=== PATIENT | female | born 1990 | race Hispanic/Latino ===

== ENCOUNTER 2016-10-30 19:39 | Inpatient (IN) | payer MEDICARE, OTHER ==
[~2016-10-30] VITALS: Ht 157.5 cm; Wt 57.0 kg
[~2016-10-30 19:39] MED LIST: AMLO10TA3 PO; CARV6.252 PO; DOXY100T2 PO; ERGO500050 PO; ETHA100T13 PO; HYDR200T5 PO; ISON300T4 PO; ISOS120T6 PO; LISI-571 PO; MYA400 PO; ONDA4TAB6 PO; OXYC-407 PO; POLY1POW MC; PRD1T PO; PYR50 PO; PYRA500T11 PO; RIFA300C4 PO; TRAM50TA2 PO
[2016-10-30 19:46] VITALS: BP 147/84; PULSE 96; RESP 18; O2SAT 96
--- NOTE | 2016-10-30 20:00 | ED.REPORT ---
HPI-Abd Pain F Under 40 Date of Service Oct 30, 2016 ED Provider: Benedicto Jiménez MD A 26 year old female with a history of peritoneal tuberculous infection, systemic lupus erythematosus, hypertension, CHF, and ESRD on dialysis presents to the ED with intermittent diffuse abdominal pain onset seven months ago, worsening last night. Associated symptoms include nausea and fever (38.2 in ED) . The patient denies constipation, diarrhea, vomiting, or urinary symptoms. She was seen in the ED at onset of her abdominal pain where she was diagnosed with ovarian cysts and discharged. However, her pain returned and upon further exam an abdominal mass was found. A biopsy of the mass indicated a possible TB infection and the patient has been on TB medication for six months. Today she had a routine abdominal CT (see results in I&D section) indicating the mass is enlarged from prior and was sent to the ED for further evaluation by her infectious disease physician. Nursing Notes Stated Complaint: POSS TB/ FEVER, SEVERE ABDOMINAL PAIN Chief Complaint: Female Abdominal Pain Nursing Notes Reviewed: Yes Allergies: Coded Allergies: No Known Allergies (Verified , 10/30/16) Scheduled Amlodipine (Amlodipine) 10 Mg Tablet 10 MG PO BID Carvedilol (Carvedilol) 6.25 Mg Tablet 6.25 MG PO BID Doxycycline Hyclate (Doxycycline Hyclate) 100 Mg Tablet 100 MG PO BID Ergocalciferol (Vitamin D2) (Drisdol) 50,000 Unit Capsule 50,000 UNIT PO Q7D Ethambutol (Ethambutol) 400 Mg Tablet 800 MG PO Mo,We,Fr After Dialysis (total of 900mg) Ethambutol (Ethambutol) 100 Mg Tablet 100 MG PO Mo,We,Fr After Dialysis (total of 900mg) Hydroxychloroquine Sulfate (Hydroxychloroquine Sulfate) 200 Mg Tablet 1 TAB PO HS Isoniazid (Isoniazid) 300 Mg Tablet 300 MG PO Mo,We,Fr Take After Dialysis Isosorbide MN ER (Isosorbide MN ER) 120 Mg Tab.er.24h 120 MG PO DAILY Lisinopril (Lisinopril) 5 Mg Tablet 5 MG PO DAILY PredniSONE (PredniSONE) 1 Mg Tab 4 MG PO DAILY Pyrazinamide (Pyrazinamide) 500 Mg Tablet 1,000 MG PO Mo,We,Fr Take After Dialysis Pyridoxine (Vitamin B-6) 50 Mg Tablet 200 MG PO Every Other Day Rifampin (Rifampin) 300 Mg Capsule 600 MG PO DAILY Scheduled PRN Ondansetron (Zofran) 4 Mg Tablet 4 MG PO Q6H PRN PRN For Nausea Oxycodone HCl/Acetaminophen 5-325 (Endocet 5-325) 1 Each Tablet 1-2 TABLET PO Q4H PRN PRN For Pain Polyethylene Glycol (Polyox Wsr-301) 1 Gm Powder 1 APPLIC MC DAILY PRN PRN For Constipation Tramadol (Tramadol) 50 Mg Tablet 50 MG PO BID PRN PRN For Pain General Time Seen by MD: 19:57 Chief Complaint Abdominal pain Hx Obtained From: Patient Arrived By: Walk-in Sudden in Onset?: No Onset Occurred: More than a week ago... (7 months, worsening last night) Symptom Duration: Intermittent Location: : Diffuse Quality: Painful Severity: Current: Moderate Severity: Maximum: Moderate Associated with: Reports: Fever, Nausea, Denies: Constipation, Diarrhea, Vomiting Pertinent Negative: Relieved by nothing Context Related History: Reports: Abdominal surgery Recent Healthcare: Recent doctor visit Similar Sx Previous: Yes Past Medical History Past Medical History Notes: PCP: Dr. Rivera Past Medical History Peritoneal tuberculous infection Abdominal mass Systemic lupus erythematosus Systemic lupus erythematosus glomerulonephritis syndrome ESRD on dialysis Hx of pneumonia Anxiety Congestive cardiomyopathy Cataracts Ovarian cysts Reports: Congestive heart failure, Hypertension Reports: Depression Past Surgical History Peritoneal Catheter R Fistula Abdominal mass biopsy Smoking History Never Smoker Social History Alcohol Use: "Social" Drug Use: Denies drug use Other Social History: Local resident Ambulatory Status Independent Review of Systems Review of Systems Note: - Urinary symptoms Constitutional: Reports: Fever (38.2 in ED) GI: Reports: Abdominal pain, Nausea, Denies: Constipation, Diarrhea, Vomiting Complete sys rev & neg: except as marked. Physical Exam Initial Vital Signs Vital Signs (First) Date Time Temp Pulse Resp B/P Pulse Ox O2 Delivery O2 Flow Rate FiO2 10/30/16 19:46 38.2 96 18 147/84 96 Room Air Initial VS: Reviewed Head / Eyes: Atraumatic, Normocephalic ENT: Conjunctiva normal, No scleral icterus Neck: Supple, Full range of motion Extremities: Vascular intact, Neuro intact, No swelling Skin: Warm, Dry, No cyanosis Neurologic: Alert, Oriented, Nonfocal Psychiatric: Mood/affect normal, Behavior normal, Normal thought content General/Constitutional: Awake, Alert Respiratory / Chest: Breath sounds NL, Breath sounds = bilat, No respiratory distress Cardiovascular: Regular rhythm, Heart sounds NL Heart Rate / Rhythm: Positive: Tachycardia Abdomen: Soft Tenderness/Guarding/Rebound: Positive: Tender periumbilical (L > R) Interpretation & Diagnostics 10/30/2016 Prior to Arrival in ED: CT ABDOMEN AND PELVIS WITH IV AND ORAL CONTRAST: IMPRESSION: 1. Interval increased size of central mesenteric lobulated mass, consistent with pathologically enlarged lymph node presumably from neoplasm. 2. Interval development of dominant 4.7 cm hemorrhagic left ovarian cyst, presumably functional given the patient's age. If no left adnexal symptoms are present, no further imaging followup would be needed for such lesions less than 5 cm. Previously noted dominant hemorrhagic right ovarian cyst has resolved. 3. Persistent anterior left hepatic lobe transient hepatic attenuation difference (RANCHO), secondary to altered perfusion with supplying vessels originating from the superior epigastric artery within the abdominal and chest wall. Finding is of uncertain underlying etiology. 4. Several dependent calcified gallstones again noted. 5. Symmetrically atrophic bilateral kidneys, consistent with known end-stage renal disease, For scheduled dialysis tomorrow. Dictated by: Héctor Bey M.D. on 10/30/2016 at 13:02 Lab Results Interpretation Result Diagram: 10/30/16203810/30/162038 Test 10/30/16 20:39 10/30/16 22:00 White Blood Count 8.0th/mm3 (3.8-10.1) Red Blood Count 3.60mil/mm3 (3.90-5.20) Hemoglobin 11.2g/dL (12.0-15.6) Hematocrit 33.2% (35.0-46.0) Mean Corpuscular Volume 92.2fL (81-100) Mean Corpuscular Hemoglobin 31.1pg (27.0-35.0) Mean Corpuscular Hemoglobin Concent 33.7% (32.0-37.0) Red Cell Distribution Width 13.6% (12.3-15.4) Platelet Count 236bil/L (150-400) Neutrophils (%) (Auto) 74.1% (40-74) Lymphocytes (%) (Auto) 12.9% (14-46) Monocytes (%) (Auto) 11.5% (4-12) Eosinophils (%) (Auto) 1.1% (0-5) Basophils (%) (Auto) 0.1% (0-3) Sodium Level 132mEq/L (134-144) Potassium Level 4.0mEq/L (3.5-5.2) Chloride Level 94mEq/L (97-108) Carbon Dioxide Level 19mmol/L (18-29) Blood Urea Nitrogen 43mg/dL (6-20) Creatinine 6.27mg/dL (0.57-1.00) Estimat Glomerular Filtration Rate 11mL/min (>59) Glucose Level 93mg/dL (60-99) Lactic Acid Level 1.4mmol/L (0.4-2.0) Calcium Level 8.8mg/dL (8.5-10.1) Total Bilirubin 0.9mg/dL (0.0-1.2) Aspartate Amino Transf (AST/SGOT) 24U/L (0-50) Alanine Aminotransferase (ALT/SGPT) 20U/L (0-32) Alkaline Phosphatase 108U/L (25-150) C-Reactive Protein 3.1mg/dL (0.0-0.5) Total Protein 7.7g/dL (6.4-8.4) Albumin 3.2g/dL (3.4-5.0) X-Ray Chest Interpretation Chest Xray Interpretation: IMPRESSION: No acute cardiopulmonary disease. Dictated by: Héctor Bey M.D. on 10/30/2016 at 20:55 View: Portable, 1 view Interpretation / Wet Read by: Interpret - Radiologist Re-Eval/Medical Decision Source of Hx: Old records Re-Evaluation/Progress : Time of Eval: 22:22 Patient Status: Condition improved Re-Evaluation/Progress Note: Discussed with patient x-ray and lab results, diagnosis, and plan for admit. Patient agrees with plan for care and all questions were addressed. Consultation #1: Referral / Consult Name: Jl Taylor MD Call Returned at: 22:05 Mechanical Maintenance Engineer: Will see patient (Will consult), Agrees with eval, Agrees with plan Note: Infectious Disease: Recommends admit Consultation #2: Referral / Consult Name: Jl Moser DO Consulted With: Nephrology Call Returned at: 22:23 Mechanical Maintenance Engineer: Will see patient, Agrees with eval, Agrees with plan Consultation #3: Referral / Consult Name: Cassandra Porter DO Consulted With: Hospitalist Call Returned at: 22:26 Mechanical Maintenance Engineer: Agrees with eval, Agrees with plan, Accepts admit Counseled Regarding: Diagnosis, Lab results, Need for admission Discharge & Departure Primary Impression: Abdominal pain Additional Impressions: Chronic renal failure Abdominal mass Disposition: ADMITTED TO HOSPITAL Discharge Condition All VS Reviewed: Yes Condition: Stable Referrals: Isidro Rivera MD (PCP) Jl Taylor MD Attestation Portions of this note were transcribed by Leela Raya. I, Dr. Jiménez, personally performed the history, physical exam, and medical decision-making; I reviewed and confirmed the accuracy of the information in the transcribed note. Signed by: Nicholas Donovan, 10/30/2016, 22:30 copies to: Isidro Rivera MD; Jl Taylor MD, Kirk H MD Oct 30, 2016 20:00 LEELA ARYA Oct 30, 2016 20:13
[2016-10-30] MEDS ORDERED: 0.9% Sodium Chloride 1,000 ML IV ONE (20:09)
[2016-10-30] MEDS ORDERED: Ondansetron 2 mg/mL 2 mL Inj IVPUSH PRN (20:10)
[2016-10-30] MEDS: HYDROmorphone 1 mg/mL Inj IVPUSH PRN ×2 (20:38→21:19)
[2016-10-30 20:56] LABS: BASOPHILS % (AUTO) 0.1 % (0-3); EOSINOPHILS % (AUTO) 1.1 % (0-5); MONOCYTES % (AUTO) 11.5 % (4-12); Mean Corpuscular Hemoglobin 31.1 pg (27.0-35.0); Mean Corpuscular Volume 92.2 fL (81-100); NEUTROPHILS % (AUTO) 74.1 % (40-74); Platelet Count 236 bil/L (150-400)
--- NOTE | 2016-10-30 20:57 | DRSVH ---
PROCEDURE: X-RAY CHEST ONE VIEW, PORTABLE ([id number]) INDICATIONS: 26 year-old female with chest pain and fevers. TECHNIQUE: One view of the chest was acquired. COMPARISON: [facility], CR, XR CHEST 2VW, 07/10/2016, 22:49. [facility], CR , XR CHEST 2VW, 03/04/2016, 21:01. [facility], CR, XR CHEST 2VW, 02/09/2016, 10:22. FINDINGS: Surgical changes and devices: None. Lungs and pleura: No pleural effusions or pneumothorax. Lungs are clear. Mediastinum: Mediastinal contours appear normal. Heart size is normal. Bones and chest wall: No suspicious bony lesions. Overlying soft tissues appear unremarkable. IMPRESSION: No acute cardiopulmonary disease. Dictated by: Héctor Bey M.D. on 10/30/2016 at 20:55 Approved by: Héctor Bey M.D. on 10/30/2016 at 20:56
[2016-10-30 21:52] VITALS: BP 119/63; PULSE 104; RESP 16; O2SAT 96
[2016-10-30] MEDS ORDERED: HYDROmorphone 1 mg/mL Inj IVPUSH ONE (22:15)
[2016-10-30] MEDS ORDERED: Polyethylene Glycol (PEG) 17 Gm Powder PO PRN (22:30)
[2016-10-31 00:15] VITALS: BP 116/73; PULSE 72; RESP 18; O2SAT 98
--- NOTE | 2016-10-31 01:11 | NUR ---
ADMIT; 26 yr old female to room 1010 via gurney from e.r. with c/o abd pain, nausea,chills, fever at 0015. Dialysis pt. Fistula in right arm. Pt states no pain at this time. Received dilaudid and toradol in e.r. E.r. rn states pt became very itchy and hands swelled after toradol given- received iv benadryl with resolved problem.
[2016-10-31 02:32] VITALS: BP 136/86; PULSE 86; RESP 18; O2SAT 99
--- NOTE | 2016-10-31 02:54 | PCM.HPMED ---
Subjective Date of Service Oct 30, 2016 Primary Provider: Admitting Physician: Cassandra Porter DO Primary Care Physician: Isidro Rivera MD Attending Physician: Cassandra Porter DO Chief Complaint: Fever, abdominal pain History of Present Illness: Patient is a 26-year-old female with hypertension, ESRD secondary to lupus nephritis, tubercular granuloma of the abdominal peritoneum presenting with abdominal pain and fever. The patient reports onset of intermittent lower abdominal pain that has been ongoing since last year. She states the pain typically lasts 3-4 days and describes it similar to menstrual cramps. She reports the quality of the pain hasn't changed much but has been a little worse over the past couple of days. She takes Percocet for the pain. She reports fever this morning with some myalgias and in the ED there was a recorded temperature of 38.2. The patient underwent a scheduled CT scan of her abdomen and pelvis today, which showed an interval increase in the size of the central mesenteric lobulated mass. Patient says she was advised by Dr. Taylor of Infectious Disease to go to the ED for further evaluation given the CT findings in addition to her symptoms. The patient reports associated nausea, myalgia and constipation. She otherwise denies emesis, recent sick contacts, cough, rhinorrhea, shortness of breath, chest pain, dysuria. Patient reports menstrual periods every 3-4 months and believes her last menstrual period was in 06/2016. In the ED, vitals: temp 37.5, HR 104, RR 16 satting 96% on room air, BP 119/63. Notable labs include BUN 43, creatinine 6.27. Regular dialysis schedule is Monday, Monday and Monday. Review of Systems: A comprehensive review of systems was conducted with the patient and found to be negative except as above in the History of Present Illness. Allergies Coded Allergies: ketorolac (Verified Allergy, Intermediate, 10/31/16) ITCHING, HANDS SWELLED Home Medications Carvedilol 6.25mg BID Prednisone 5mg daily Isosorbide mononitrate 120mg daily Amlodipine 10mg BID Calcium acetate 2g TID with meals Ethambutol 800mg after HD on , W, F Pyrazinamide 1500mg after HD on , W, Isoniazid 300mg daily Rifabutin 300mg daily Pyridoxine 200mg QOD . PMH -ESRD secondary to lupus nephritis -Tubercular granuloma of abdominal peritoneum -Hypertension -Depression and anxiety . Surgical History -AV fistula -PD catheter placement . Social History Hx Alcohol Use: Yes (Occasional) Hx Substance Use: No Hx Tobacco Use: No Smoking Status: Never Smoker Living Arrangement: with Family Exam Vital Signs Vital Sign - Last Date Time Temp Pulse Resp B/P Pulse Ox O2 Delivery O2 Flow Rate FiO2 10/30/16 21:52 37.5 104 16 119/63 96 Room Air Exam General: No acute, well-developed, well-nourished, appropriately interactive HEENT: Normocephalic, atraumatic. External ears without defect. Pupils equal, round, and reactive to light. Injected conjunctivae bilaterally. Oropharynx free of erythema and cobble stoning with moist mucosa. Neck: Supple. No lymphadenopathy or thyromegaly. Cardiovascular: Regular rate and rhythm with no murmurs, rubs, or gallops appreciated Pulmonary: Clear to auscultation bilaterally with no crackles, wheezes, or rhonchi. Normal respiratory effort with no use of accessory muscles. Abdomen: Bowel tones present. Soft. Tenderness to palpation RLQ and lower abdomen. Extremities: No clubbing, cyanosis, edema, or lymphadenopathy appreciated. Skin: Normal temperature, turgor, and texture; no rash, ulcers, or subcutaneous nodules appreciated. Neurological: Cranial nerves grossly intact. Psychiatric: Normal mood and affect. Alert and oriented to person, place, and time. Lab and Diagnostics Result Diagram: 10/30/16203810/30/162038 X-Rays, CTs and MRIs Date of Service: 10/30/16 1121 PROCEDURE: CT ABDOMEN AND PELVIS WITH CONTRAST ([id number]) INDICATIONS: 26 year-old female with mesenteric mass. TECHNIQUE: Patient is scheduled for dialysis tomorrow. After the administration of oral and intravenous contrast, 5 mm thick sections acquired from the diaphragms to the symphysis. 5 mm thick coronal and sagittal reformats were performed. For radiation dose reduction, the following was used: automated exposure control, adjustment of mA and/or kV according to patient size. COMPARISON: [facility], CT, CT ABD PELVIS WO CON, 07/14/2016, 12: 03. [facility], CT, CT ABD PELVIS W CON, 07/10/2016, 9:02. [facility], CT, CT KUB, 04/23/2016, 0:10. [facility], CT, CT ABD PELVIS W CON, 03/10/2016, 13:13. [facility], CT, CT KUB, 2015, 23:33. [facility], CT, ABD/PELVIS W/CON (PNL), 01/26/2005, 17: 48. FINDINGS: Image quality: Excellent. ABDOMEN: Lung bases: Lung bases are clear. Heart size is normal. Solid organs: Liver and spleen are normal in size, with persistent anterior left hepatic lobe segmental altered perfusion. Gallbladder contains several dependent calcified gallstones. Biliary system is non-dilated. Pancreas enhances normally. No adrenal nodules. Kidneys are symmetrically atrophic, without hydronephrosis. Peritoneum and bowel: Stomach, small bowel, and colon loops are normal in caliber and wall thickness. The appendix appears normal in caliber. No free fluid or air. Nodes and vessels: On axial image 48, lobulated mesenteric mass has increased in size from 5.2 x 3.3 cm, up to 6.5 x 3.7 cm. No retroperitoneal or mesenteric adenopathy. Aorta and inferior vena cava are normal in caliber. Miscellaneous: No ventral hernias. PELVIS: Genitourinary: Bladder wall thickness is normal. Uterus is normal in size. Previously noted dominant hemorrhagic right ovarian cyst has resolved. No dominant left ovarian cyst measures 4.7 x 4.1 cm, with dependent hyperdense fluid-fluid level. Miscellaneous: No inguinal hernias or adenopathy. Bones: No suspicious bony lesions. No vertebral body compression fractures. IMPRESSION: 1. Interval increased size of central mesenteric lobulated mass, consistent with pathologically enlarged lymph node presumably from neoplasm. 2. Interval development of dominant 4.7 cm hemorrhagic left ovarian cyst, presumably functional given the patient's age. If no left adnexal symptoms are present, no further imaging followup would be needed for such lesions less than 5 cm. Previously noted dominant hemorrhagic right ovarian cyst has resolved. 3. Persistent anterior left hepatic lobe transient hepatic attenuation difference (RANCHO), secondary to altered perfusion with supplying vessels originating from the superior epigastric artery within the abdominal and chest wall. Finding is of uncertain underlying etiology. 4. Several dependent calcified gallstones again noted. 5. Symmetrically atrophic bilateral kidneys, consistent with known end-stage renal disease, For scheduled dialysis tomorrow. Dictated by: Héctor Bey M.D. on 10/30/2016 at 13:02 Approved by: Héctor Bey M.D. 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 . 1. Mesenteric mass, chronic. Present on admission. Active -CT abdomen and pelvis reads interval increased size of central mesenteric lobulated mass, consistent with pathologically enlarged lymph node presumably from neoplasm. Increase from 5.2 x 3.3 cm to 6.5 x 3.7 cm -Mass was presumed TB but given the interval size increase while on appropriate therapy will necessitate further workup 2. Peritoneal tuberculosis, chronic. Present on admission. Active -Peritoneal mass presumed to be tuberculosis based on needle biopsy with positive AFB stain and positive Quantiferon gold; see #1 above -Infectious Disease to see patient -Continue with TB therapy (Rifabutin, Isoniazid, Ethambutol, and Pyrazinamide) until further recommendations by ID 3. Acute on chronic lower abdominal pain. Present on admission -Uncertain etiology; possibly secondary to above or sequelae of her lupus 4. Chronic systemic lupus erythematosus. Present on admission -Continue prednisone and hydroxychloroquine 5. End-stage renal disease on hemodialysis. Present on admission -Nephrology to see patient -Continue HD per schedule - Monday, Monday, Monday Patient Status: Patient is admitted under inpatient status with expected length of stay greater than 2 midnights due to severity of presenting symptoms and complexity of treatment plan. VTE Prophylaxis: Sub-Q Heparin (Unfractionated) Resuscitation Status: CPR: Attempt Resuscitation Attending Statement The patient was seen and examined together with house staff on 10/31/2016 and I agree with the history, exam and plan as outlined in the note above. Curt Melendez DO Oct 31, 2016 00:17 Cassandra Porter DO Oct 31, 2016 04:51
[2016-10-31 05:31] LABS: BASOPHILS % (AUTO) 0.2 % (0-3); EOSINOPHILS % (AUTO) 5.8 % (0-5); MONOCYTES % (AUTO) 12.6 % (4-12); NEUTROPHILS % (AUTO) 59.7 % (40-74); Platelet Count 218 bil/L (150-400)
--- NOTE | 2016-10-31 06:28 | NUR ---
PAIN/GI/VS; slept all shift. no c/o nausea. v.s.s.
[2016-10-31 07:03] VITALS: BP 112/68; PULSE 73; RESP 16; O2SAT 98
[2016-10-31] MEDS: Isosorbide Mononitrate 60 mg ER24 Tablet PO SCH (07:30)
[2016-10-31] MEDS ORDERED: PT Own Med->Oral Medication PO SCH (08:30)
[2016-10-31 10:42] VITALS: BP 147/96; PULSE 87
--- NOTE | 2016-10-31 11:45 | CONS ---
[address] [address] CONSULTATION REPORT PATIENT: BARBIE DE LOS SANTOS : 1990 MR#: [id number] ADMIT: 10/30/2016 JOB ID: [id number] DATE OF SERVICE: 10/31/2016 REASON FOR FOLLOW UP: Mesenteric mass with possible tuberculosis. I thank Dr. Lomeli for this timely consult. 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 Recall that this patient's problem started last summer when she developed unexplained abdominal pain. CT scanning showed a mesenteric mass of unknown etiology. There was very little in the way of symptoms except some abdominal pain, and occasional night sweats. An Interventional Radiology biopsy showed a couple of granulomas and a single AFB was seen in one the needle biopsy sections. 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 Interestingly, the patient had had a negative QuantiFERON Gold in December 2015 in preparation for kidney transplant in the summer. When we saw her in consultation, the QuantiFERON Gold had turned strongly positive. There was also a history that an aunt from [place] had brought up some fresh cheese in the December-January time frame and the patient had consumed significant quantities of queso fresco, a cheese sometimes associated with brucellosis or mycobacterium bovis. Our working hypothesis since March has been that this patient has either MTB or M. bovis of the mesentery. The patient was started on four drug TB therapy which was adjusted, of course, for her peritoneal dialysis, and she has been on TB treatment for 8+ months now. Unfortunately, during the early stages of her TB therapy, the patient was clearly only intermittently compliant. She refused directly observed therapy offered by the [facility], and initially reported that she had skipped many doses. Finally, in about June, after a series of problems which led to the removal of her peritoneal catheter and switched to hemodialysis, the patient became compliant and was continued on four drug therapy. She has now had at least three months of compliant four drug therapy with INH, rifabutin, PZA and ethambutol. The rifabutin is being used because she tolerates it better than rifampin she had been receiving previously. Prior to that, she had about four months of intermittent therapy. At the time the patient lost her peritoneal dialysis catheter in June, it was noted by the surgeon that there were numerous snowflake-like granules within the peritoneum. These were scraped and sent for multiplex PCR for TB for mycobacteria, which was negative. No path was sent from these. The diagnosis of TB was never proven in that the PCR of the original lymph node that showed the granulomas and the single AFB was negative. Subsequently, we have peritoneal fluid cultures as well as the PCR and AFB cultures from the peritoneal study that was seen in June which are negative for TB. Throughout her many months of TB therapy, the patient has continued to have episodic severe mid abdominal pain which lasts 3-4 days and occurs every three or four weeks. This often requires narcotics and this usually just resolves over a period of a few days. Yesterday, October 30, the patient awakened with new onset nausea as well as increasing and quite severe abdominal pain. This was associated with chills. She took her temperature and found it to be 86 degrees, and called me at home. I was a bit shocked by the temperature and recommended she proceed immediately to the emergency department. In the ED, she was actually found to be febrile with a temperature of 38.2, so the hypothermia was likely as a result of the defective home thermometer. In addition to the fevers and chills which started yesterday, as well as the nausea, the patient reports that she has felt very tired for a week or two, with just a general loss of energy. She also describes a few days of myalgias, arthralgias, and a right eye conjunctivitis, all of which started a few days prior to yesterday's nausea and abdominal pain. Prior to yesterday, she had no fever, no chills however, and she denies any vomiting, diarrhea, cough, shortness of breath or chest pain. PAST MEDICAL HISTORY: 1. Severe lupus requiring immunosuppressive agents. 2. 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 3. Hypertension. 4. Anxiety and depression. 5. 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 She occasionally drinks alcohol and has never smoked. She lives at home with her and 10-year-old. She used to travel for a week or so each year to [place], but has not been for several years. She was born and raised here in [facility]. Has never lived outside of the country on a consistent basis. FAMILY HISTORY: Negative for lupus and negative for TB. This negative history includes all of her extended family, including parents, siblings, uncles, aunts and cousins. REVIEW OF SYSTEMS: Was done in great detail. At this time, the patient has no headache. She has redness and irritation in her right eye which started a day or two ago. There is no loss of vision in that eye. She has not had rhinorrhea or sneezing. She has not had sore throat or trouble swallowing. Her neck is not stiff and has not been. She denies any significant cough, shortness of breath or chest pain. She has had very severe nausea which started yesterday morning, without vomiting and without diarrhea. She was able to eat on Monday, the , but not on Monday, the . She has had no skin rash. She notes her muscles and joints hurt diffusely and that started a few days ago. She has been able to work up to and including October 28, but she has felt very tired. She denies any new neurologic troubles such as difficulty walking or with balance. The remainder of the review of systems was negative. PHYSICAL EXAMINATION: Reveals a woman who is now afebrile 37 degrees. She was 38.2 in the ED yesterday. Pulse 73, respiratory rate 16, blood pressure 112/68. She is saturating well on room air. She is awake, alert, and appears a bit tired but otherwise appears like her normal self. Her head is free of any evidence of trauma. There is no sinus tenderness. She clearly has right eye conjunctivitis and appears to have a classic "pinkeye." Extraocular movement and visual acuity is normal. The oral cavity is without thrush or hairy leukoplakia. The neck is completely supple and without adenopathy or JVD. The lungs are quite clear. Cardiac tones crisp. Regular rate and rhythm. No murmurs, rubs, or gallops. The abdomen is soft and nontender this morning, without organomegaly. I cannot palpate the abdominal mass. There is no suprapubic tenderness. There is no [place] catheter. She has a fistula in her right forearm which has a good thrill and is functional. There is no warmth or tenderness over that fistula. The extremities are free of any evidence of synovitis. There is no skin rash. Muscle strength intact. Normal sensation, and normal mentation. LABORATORIES: Include white count 5700, hematocrit 33, platelet count 218. Creatinine 6.81. LFTs are normal last night in the ED. AST 24, ALT 28, alk phos 108. CRP is 3.1, was 6.1 when this all started in February 2016. I ordered a CA-125, that is still pending. Micro studies include a rapid influenza screen done yesterday which is negative, and blood cultures which were negative. IMAGING: Imaging includes a chest x-ray done in the ED yesterday which is negative, as all of her chest x-rays have been. I carefully reviewed the abdominal CT scan, done yesterday, with the radiologist in the radiology suite. It shows an increased size of the mesenteric mass compared to the CT scans done Summer 2015 and June 2016. Also noted was the development of a left hemorrhagic ovarian cyst. The previously noted very large right hemorrhagic ovarian cyst has resolved. Recall that previously we worried these could be tuberculosis, and that is still not completely out of the question. Dependent calcified gallstones were noted as well as atrophic kidneys. Last week, I had also ordered ultrasounds of the ovaries which suggested bilateral hemorrhagic cyst, and a pelvic ultrasound and abdominal ultrasound shows the complex collection seen in the periumbilical region. It was unclear what this was, and the nurse receptionist raised the possibility of abscess. The radiologist with whom I reviewed both the CT and ultrasound today stated that this mass that we have been following for so many months would be very amenable to needle biopsy. IMPRESSION: This is a bewildering case. The patient presented last February with severe abdominal pain and some night sweats. A needle biopsy of the mass showed a couple of granulomas and perhaps one acid-fast organism. This led to a repeat QuantiFERON Gold which interestingly had converted from completely negative in December to completely positive in March. The PCR of this lesion, however, was negative for TB, and peritoneal fluid washings which were done at that time since the patient was on peritoneal dialysis, were also negative for TB. Based on her presumptive diagnosis of mesenteric TB, we started the patient on four drug therapy, but she was initially noncompliant for many months despite aggressive efforts and counseling by myself, the [facility] TB officers, the food prep worker, and many others. Finally, in June, she developed worsening abdominal pain, and her peritoneal dialysis catheter had to be removed. About that time, the patient became much more diligent in terms of taking her TB drugs, and reports complete compliance since late June, about three and half months ago. Despite continued compliance with her four drug TB therapy, the patient has had episodic abdominal pain which is sometimes quite severe. She has not lost any weight, however, and in general, continues to be quite functional. More recently, over the last couple of weeks, she has become quite fatigued, however. She was readmitted yesterday for an exacerbation of abdominal pain and a probable false positive report of hypothermia. Yesterday morning, by complete coincidence, was the day that she had been scheduled for her outpatient CT scan of the abdomen with contrast. Her symptoms of abdominal pain started before the CT, interestingly, as did her nausea. That CT now shows what appears to be any increase in the size of this mesenteric mass despite three and half months of four drug TB therapy. This raises the possibility, I suppose, that this is a multi-drug resistant TB which is quite rare in the [facility]. It also raises the possibility that she is less compliant than she admits, though I am inclined to think that is not the case based on her refill history and my frequent conversations with her. A bigger concern here is that perhaps our initial diagnosis was completely wrong and this is actually a malignant process or some bizarre manifestation of her lupus. RECOMMENDATIONS: 1. For now, will continue with the four drug TB therapy. 2. I have discussed this case in person with Interventional Radiology, and they are prepared to undertake an additional needle biopsy. 3. Before the needle biopsy though, I think I will discuss this case with either Dr. Jeong or Dr. Nobles of General Surgery, both of whom know this patient. I wonder whether it would be better to simply attempt and resect this mesenteric mass both obviously for pain relief but also to finally provide a definitive diagnosis in this most perplexing case. 4. I will continue to follow this case closely with you. 5. I spent about 1 hour yesterday on the phone coordinating care from home for this patient and again about another hour today coordinating care.
[2016-10-31] MEDS ORDERED: Furosemide 10 mg/mL 2 mL Inj ONE (12:50)
[2016-10-31] MEDS ORDERED: HYDROmorphone 1 mg/mL Inj IVPUSH PRN (13:10)
--- NOTE | 2016-10-31 14:58 | NUR ---
Dialysis Note: 3 1/2 hr tx, Net UF 3000. Right fistula accessed without difficulty by tech. NS drip ran at 500 mL/hr in addition to heparin maint of 400/hr. C/o abdominal pain, 3 hr into tx; primary RN informed and pt given tylenol first with no relief and then given dilaudid. Pain improved. Site clamped x 10 min and secured with SS, gauze. Pt returned to floor stable. Please see DTR for complete record of VS.
[2016-10-31] MEDS: predniSONE 1 mg Tablet PO SCH (15:24)
[2016-10-31] MEDS: PYRAZINAMIDE 500 MG PO SCH (15:26)
[2016-10-31 15:28] VITALS: BP 119/77; PULSE 81; RESP 16; O2SAT 99
[2016-10-31] MEDS: HYDROmorphone 1 mg/mL Inj IVPUSH PRN ×2 (16:02→19:32)
--- NOTE | 2016-10-31 16:04 | NUR ---
PAIN C/o left shoulder pain 04/03, unrelieved by repositioning. Offered ice pack. Administered 1mg Dilaudid IVP States relief noted from administration. Denies nausea, or chills. remained afebrile throughout shift.
[2016-10-31] MEDS: Polyethylene Glycol (PEG) 17 Gm Powder PO SCH (16:41)
[2016-10-31] MEDS: Ondansetron 2 mg/mL 2 mL Inj IVPUSH PRN (16:41)
--- NOTE | 2016-10-31 20:04 | CONS ---
[address] [address] CONSULTATION REPORT PATIENT: BARBIE DE LOS SANTOS : 1990 MR#: [id number] ADMIT: 10/30/2016 JOB ID: [id number] DATE OF SERVICE: 10/31/2016 REQUESTING PHYSICIAN: Cassandra Porter D.O. REASON FOR CONSULTATION: Management of end-stage renal disease. CHIEF COMPLAINT: Abdominal pain and fever. PRESENT ILLNESS: This is a 26-year-old lady with significant past medical history of end-stage renal disease secondary to lupus nephritis currently on hemodialysis every Monday, Monday and Monday, SLE, hypertension, tuberculosis granuloma of abdominal peritoneum who presented to the emergency department with a complaint of acute abdominal pain and fever. The patient has been diagnosed with end-stage renal disease for several years. Initially, she was on peritoneal dialysis. Unfortunately, she developed hemorrhagic discharge and subsequently had an extensive workup showing a tuberculous granuloma without evidence of tuberculous peritonitis. The patient has been under the care of Dr. Taylor for eight months also. She has been on antituberculosis medications. Of note, she had poor compliance with the medications. However, over the past three months she has been adhering to the medications. The patient had a peritoneal catheter removed sometime in June 2016. The patient is now on hemodialysis every Monday, Monday, and Monday. The patient was admitted between July 10 and July 18, 2016 due to abdominal pain. At that time, CT of the abdomen showed bilateral adnexal masses which ruled out hemorrhagic cyst, tumor, tuberculomata. At that time, she was on IV ceftriaxone along with antituberculosis medications. The patient came in this time with a complaint of worsening abdominal pain. The pain is localized on the suprapubic area. It is intermittent. She also is feeling weak, fatigue, feverish. Patient contacted Dr. Taylor and was informed to come to the emergency department for further investigation. The initial temperature at the emergency department was 38.2. The CT of the abdomen and pelvis was performed. It showed interval increase in the size of central mesenteric lobulated mass, dominant hemorrhagic right ovarian cyst has resolved, nondominant left ovarian cyst measures 4.7 x 4.1 cm. During my visit today, the patient is currently on hemodialysis. She had not had a temperature since this morning. She has some nausea but no vomiting. She remains having suprapubic tenderness. Renal was consulted to continue dialysis while she is hospitalized. She is a patient of Dr. ANTONINO Rivera. Her dialysis unit ts at [facility]. PAST MEDICAL HISTORY: 1. End-stage renal disease secondary to SLE currently on hemodialysis every Monday, Monday, and Monday. 2. SLE. 3. Tuberculosis granuloma of the abdominal peritoneum. 4. History of hemorrhagic ovarian cyst. 5. Hypertension with hypertensive nephrosclerosis. PAST SURGICAL HISTORY: 1. Status post peritoneal dialysis catheter placement and removal. 2. Status post AV fistula creation. ALLERGIES: KETOROLAC causes itching and hand swelling. FAMILY HISTORY: Noncontributory. REVIEW OF SYSTEMS: A 14 point review of system was performed. MEDICATIONS: Reviewed per medical reconciliation. SOCIAL HISTORY: Denies current use of alcohol, tobacco, or illicit drugs. PHYSICAL EXAMINATION: Vitals: Temperature 37.0, pulse 73, respiratory 16, blood pressure 112/68, O2 sat 98% on room air. General appearance: Awake, alert, oriented x3. In no acute distress. Well developed, well nourished. HEENT: No pallor. No jaundice. No JVD. No lymphadenopathy. No thyroid enlargement. Moist mucous membranes. Atraumatic. PERRLA. Heart: Regular rhythm. Normal S1, S2. No murmurs, rubs, or gallops. Lungs: Clear to auscultation bilaterally. No crackles and no wheezes. No rhonchi. No accessory muscle use. Abdomen: Soft. Mild tenderness on the right lower quadrant and suprapubic area. No guarding. No rigidity. Extremities: No edema, cyanosis or clubbing of the fingers. Right AV fistula with good thrill and bruits. LABORATORY: WBC 5.7, hemoglobin 11.0. Sodium 134, potassium 4.2, chloride 96, bicarb 20, BUN 46, creatinine 6.81, calcium 8.2. Chest x-ray showed no acute cardiopulmonary disease. Abdominal CT showed increased size of central mesenteric lobulated mass, consistent with pathological enlarged lymph node presumably by neoplasm, interval development of dominant 4.7 cm hemorrhagic left ovarian cyst, several dependent calcified gallstones, atrophic bilateral kidneys. ASSESSMENT: 1. Acute on chronic abdominal pain. 2. CAT scan showed increased size of central mesenteric lobulated mass, measures 6.5 x 3.7 cm. The patient has been evaluated by Dr. Taylor, pending for possible Interventional Radiology to perform a percutaneous needle biopsy. 3. End-stage renal disease on hemodialysis every Monday, Monday, and Monday. 4. Tuberculous granuloma of abdominal peritoneum. 5. History of systemic lupus erythematosus. 6. Hypertension with hypertensive nephrosclerosis. PLANS: Per renal standpoint, we will resume dialysis to be performed every Monday, Monday, and Monday. We will continue her current blood pressure medications. We will monitor her potassium, calcium and phosphorus level. We will follow along with the primary team. Will follow ID recommendations. Will notify her primary tractor sweeper driver. Thank you for the consultation. We will monitor along with you. NARGIS
[2016-10-31 21:40] VITALS: BP 115/78; PULSE 93; RESP 16; O2SAT 99
--- NOTE | 2016-11-01 00:30 | CONS ---
[address] [address] CONSULTATION REPORT PATIENT: BARBIE DE LOS SANTOS : 1990 MR#: [id number] ADMIT: 10/30/2016 JOB ID: [id number] DATE OF SERVICE: 10/31/2016 REQUESTING PHYSICIAN: Jl Taylor MD. HISTORY OF PRESENT ILLNESS: The patient is a 26-year-old female who I know from the past. She has a very complex history of possible intra-abdominal tuberculosis or atypical mycobacterial infection. She has a history of lupus and lupus nephritis. She is on immunosuppressive agents. She had a peritoneal dialysis catheter that ultimately had to be removed last June. She is currently on hemodialysis. Unfortunately, she was being prepped and readied for a renal transplant before all the history of possible intra-abdominal tuberculosis developed. She has been on four medications for tuberculosis. Prior to that, she had been very inconsistent in taking her antibiotics. Last May I did a diagnostic laparoscopy. I removed multiple small little granules that were like the size of salt granules. They were sent for PCR for TB and they were negative. Prior to that, she had a needle biopsy that showed non-caseating granulomas and one possible AFB organism. She has been on four antituberculosis drugs for the last three months and has been compliant. They include INH, rifabutin, PZA and ethambutol. But, she has been having intermittent episodes of abdominal pain. She went to the emergency department during an episode of pain and had a CT scan which shows an enlarging mesenteric mass that had previously been biopsied. I was asked to see her for consideration of resection of the mass or if it should be biopsied. PAST MEDICAL HISTORY: Illnesses: 1. Lupus. 2. Immunosuppressive agents. 3. End-stage renal failure secondary to lupus nephritis. 4. Hypertension. 5. Anxiety, depression. 6. Mesenteric mass. SOCIAL HISTORY: She is . She has a 10-year-old daughter. 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 REVIEW OF SYSTEMS: Currently denies any abdominal pain and also states that she has never been able to feel an abdominal mass. PHYSICAL EXAMINATION: Her BMI is 22.5, temperature is 36.8, brachial blood pressure 119/77, pulse 81, respiratory rate 16, O2 sat on room air 99%. She is alert, no distress. HEENT: Nonjaundiced. Neck: No masses. Lungs: Clear. Cardiac exam: Regular rhythm. Abdomen: Soft, nontender. I cannot palpate the abdominal mass seen on CT scan. Extremities: Right forearm fistula. Skin: No abdominal wall rashes. Neurologic exam: Appropriate affect. No obvious cranial nerve deficits. Moves all extremities. Gait not tested. LABORATORY RESULTS: White blood cell count is normal. Yesterday, it was 8.0, today it is 5.7. Hematocrit 33 platelet count 218,000. INR 1.00. Creatinine 6.81. Electrolytes are normal. Glucose is normal. CT scan of abdomen and pelvis is personally reviewed by myself, but also discussed together with Dr. Taylor and also with Dr. Iris Gomez. IMPRESSION: Mesenteric mass. I think that it should first be biopsied percutaneously. I have arranged for this for tomorrow. Dr. Gomez thought the way to initially approach it would be through ultrasonic guidance as that would allow them to avoid mesenteric vessels. I think that this might actually be hard to remove completely because it does look like on her CT scan that the mesenteric vessels run right through it. The differential is quite broad, but includes inflammatory, infectious and neoplastic etiologies. I discussed this with the patient, and she understands and agrees. Again, Dr. Gomez is planning a core biopsy.
[2016-11-01] MEDS: HYDROmorphone 1 mg/mL Inj IVPUSH PRN ×6 (02:30→22:56)
--- NOTE | 2016-11-01 04:00 | NUR ---
pain pt has continued to have L shoulder pain. she has rated it a 5/10 this shift. she has received IV dilaudid twice for her pain. she has been sleeping appearing to be comfortable in between doses. pt has been NPO since midnight. care continues.
[2016-11-01 05:39] LABS: BASOPHILS % (AUTO) 0 % (0-3); EOSINOPHILS % (AUTO) 6.6 % (0-5); MONOCYTES % (AUTO) 14.3 % (4-12); Mean Corpuscular Hemoglobin 30.9 pg (27.0-35.0); Mean Corpuscular Volume 93.9 fL (81-100); NEUTROPHILS % (AUTO) 65.7 % (40-74); Platelet Count 219 bil/L (150-400)
[2016-11-01 06:07] LABS: Magnesium 2.1 mg/dL (1.6-2.6); Phosphorus 6.6 mg/dL (2.5-4.9)
[2016-11-01] MEDS: Ondansetron 2 mg/mL 2 mL Inj IVPUSH PRN ×3 (06:24→17:11)
[2016-11-01 06:56] VITALS: BP 107/65; PULSE 65; RESP 18; O2SAT 98
[2016-11-01] MEDS: Polyethylene Glycol (PEG) 17 Gm Powder PO SCH (08:30)
--- NOTE | 2016-11-01 08:44 | PROG NOTE ---
[address] [address] PROGRESS NOTE PATIENT: BARBIE DE LOS SANTOS : 1990 MR#: [id number] ADMIT: 10/30/2016 JOB ID: [id number] DATE: 11/01/2016 INFECTIOUS DISEASE FOLLOW UP NOTE: REASON FOR FOLLOW UP: Mesenteric mass. INTERVAL HISTORY: Overnight, the patient reports her abdominal pain has subsided. She has had no fevers, chills, shortness of breath, abdominal pain, nausea, vomiting or diarrhea. Note that her abdominal pain got better basically when she was given narcotics but has not recurred during the night. She did have some trouble sleeping though due to the unfamiliar circumstances of the hospital. PHYSICAL EXAMINATION: Reveals an afebrile woman in no acute distress. Temperature 36.7, pulse 65, respiratory rate 18, blood pressure 107/65. She is saturating well on room air. Examination of the mental status reveals it to be clear. Oral cavity benign. Lungs clear. Cardiac tones without murmur. Abdomen again soft and nontender. I cannot appreciate the mass even though I just looked at the imaging of it and it seems to be basically right in the middle of her abdomen and very shallow. The remainder of the exam is unremarkable. LABORATORIES: Include white count 6500, basically normal differential except a mild monocytosis and 6% eosinophils. Her creatinine is 4.45. Her LFTs are normal. Albumin 3.4. CRP 3.1. CA-125, that I had ordered is negative at 18. The respiratory viral PCR panel ordered yesterday has come back negative. Blood cultures from admission when she did have a low-grade fever, are negative and a flu study of rapid flu negative. Chest x-ray was normal. IMPRESSION: This continues to be a bewildering case which has stymied our best efforts to diagnose and treat over the last eight months. The nature of this enlarging mesenteric mass remains unclear. Our initial biopsies from last March showed what appeared to be granulomas with at least one AFB organisms. Despite eight months of treatment, during about half of which was marked by compliance with her four drug regimen (the period from late July until the current time) the mass has actually enlarged. This raises the possibility of multi-drug resistant TB which I find quite unlikely or perhaps a completely different diagnosis either related to her lupus or perhaps even a neoplasm. A mesenteric mass like this is not really typical for much of anything and we need additional tissue before we can decide what is going on. This case discussed extensively in person with interventional Radiology, general surgery and nephrology. RECOMMENDATIONS: 1. Continue four drug TB therapy for now. 2. After discussions with General Surgery and Interventional Radiology it seems like we will start here again with Interventional Radiology. 3. The biopsy should be sent for histopath, AFB, fungal and bacterial PCR studies at the [facility], routine and AFB cultures, and as noted, histopath. 4. I have communicated the request to the head of the micro lab as well as written the orders in the chart.
--- NOTE | 2016-11-01 12:09 | PCM.PNMED ---
Subjective Date of Service Nov 01, 2016 Subjective No overnight event Patient still required Dilaudid when necessary for pain Denied nausea or vomiting Awaiting sono-guided biopsy by IR today Exam Vital Signs Vital Sign - Last Date Time Temp Pulse Resp B/P Pulse Ox O2 Delivery O2 Flow Rate FiO2 11/01/16 06:56 36.7 65 18 107/65 98 Room Air Intake and Output 10/31/16 10/31/16 11/01/16 Cumulative From/Thru 14:59 22:59 06:59 10/30/16 19:46 - 11/01/16 06:56 Intake Total 420 ml 375 ml 1795 ml Output Total 0 ml 600 ml 800 ml Balance 420 ml -225 ml 995 ml Intake Oral 420 ml 375 ml 795 ml IV Total 1000 ml Output Urine Total 0 ml 600 ml 800 ml # Voids 2 2 # Bowel Movements 0 0 Exam thin -Polish young lady, laying down comfortably no JVD, MMM, no LAD RRR, nl s1, s2 no mrg CTAB, no w,c S,ND, diffuse tenderness periumbilical area, hypoactive BS+ warm, no edema, pulses 2/2 IVs and Medications Medications Reviewed: Medications were reviewed in detail Lab and Diagnostics Result Diagram: 11/01/16 0506 11/01/16 0506 X-Rays, CTs and MRIs Date of Service: 10/30/16 1121 PROCEDURE: CT ABDOMEN AND PELVIS WITH CONTRAST ([id number]) INDICATIONS: 26 year-old female with mesenteric mass. TECHNIQUE: Patient is scheduled for dialysis tomorrow. After the administration of oral and intravenous contrast, 5 mm thick sections acquired from the diaphragms to the symphysis. 5 mm thick coronal and sagittal reformats were performed. For radiation dose reduction, the following was used: automated exposure control, adjustment of mA and/or kV according to patient size. COMPARISON: [facility], CT, CT ABD PELVIS WO CON, 07/14/2016, 12: 03. [facility], CT, CT ABD PELVIS W CON, 07/10/2016, 9:02. [facility], CT, CT KUB, 04/23/2016, 0:10. [facility], CT, CT ABD PELVIS W CON, 03/10/2016, 13:13. [facility], CT, CT KUB, 2015, 23:33. [facility], CT, ABD/PELVIS W/CON (PNL), 01/26/2005, 17: 48. FINDINGS: Image quality: Excellent. ABDOMEN: Lung bases: Lung bases are clear. Heart size is normal. Solid organs: Liver and spleen are normal in size, with persistent anterior left hepatic lobe segmental altered perfusion. Gallbladder contains several dependent calcified gallstones. Biliary system is non-dilated. Pancreas enhances normally. No adrenal nodules. Kidneys are symmetrically atrophic, without hydronephrosis. Peritoneum and bowel: Stomach, small bowel, and colon loops are normal in caliber and wall thickness. The appendix appears normal in caliber. No free fluid or air. Nodes and vessels: On axial image 48, lobulated mesenteric mass has increased in size from 5.2 x 3.3 cm, up to 6.5 x 3.7 cm. No retroperitoneal or mesenteric adenopathy. Aorta and inferior vena cava are normal in caliber. Miscellaneous: No ventral hernias. PELVIS: Genitourinary: Bladder wall thickness is normal. Uterus is normal in size. Previously noted dominant hemorrhagic right ovarian cyst has resolved. No dominant left ovarian cyst measures 4.7 x 4.1 cm, with dependent hyperdense fluid-fluid level. Miscellaneous: No inguinal hernias or adenopathy. Bones: No suspicious bony lesions. No vertebral body compression fractures. IMPRESSION: 1. Interval increased size of central mesenteric lobulated mass, consistent with pathologically enlarged lymph node presumably from neoplasm. 2. Interval development of dominant 4.7 cm hemorrhagic left ovarian cyst, presumably functional given the patient's age. If no left adnexal symptoms are present, no further imaging followup would be needed for such lesions less than 5 cm. Previously noted dominant hemorrhagic right ovarian cyst has resolved. 3. Persistent anterior left hepatic lobe transient hepatic attenuation difference (RANCHO), secondary to altered perfusion with supplying vessels originating from the superior epigastric artery within the abdominal and chest wall. Finding is of uncertain underlying etiology. 4. Several dependent calcified gallstones again noted. 5. Symmetrically atrophic bilateral kidneys, consistent with known end-stage renal disease, For scheduled dialysis tomorrow. Dictated by: Héctor Bey M.D. on 10/30/2016 at 13:02 Approved by: Héctor Bey M.D. 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 . #acute chronic abdominal pain due to enlarging Mesenteric mass, POA, CT showed interval increased size of central mesenteric lobulated mass, consistent with pathologically enlarged lymph node presumably from neoplasm. Increase from 5.2 x 3.3 cm to 6.5 x 3.7 cm. 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 Present on admission -Continue prednisone and hydroxychloroquine #End-stage renal disease on hemodialysis. Present on admission -Nephrology to see patient -Continue HD per schedule - Monday, Monday, Monday #enlarging left hematologic ovarian cyst, 4.7cm, this finding seems not contributing to current presentation, ca-125 unremarkable, dispo: d/c home likely in 2-3more days, not until sx controlled, definite plan in place dvt ppx: SCD diet: resume renal diet after procedure Full Code VTE Prophylaxis: Sub-Q Heparin (Unfractionated) VTE Mechanical Devices: Intermittant Pneumatic CD Resuscitation Status: CPR: Attempt Resuscitation Time spent 35 minutes Sebastian Lomeli MD Nov 01, 2016 12:09
[2016-11-01 12:30] VITALS: BP 118/69; PULSE 76; RESP 16; O2SAT 98
[2016-11-01] MEDS ORDERED: HYDROmorphone 2 mg/mL Inj ONE (12:40)
--- NOTE | 2016-11-01 12:57 | NUR ---
Off unit/Medication delays Pt off unit to [facility] for US guided biopsy at 1000. Morning medications were not given prior to this. BID medications were withheld and "daily" medications will be given upon return to unit. MD aware. Procedure longer than normal d/t missed tests.
--- NOTE | 2016-11-01 13:46 | DRSVH ---
PROCEDURE: US GUIDED BIOPSY ABDOMEN/RETROPERITONEUM INDICATIONS: mesenteric mass, send to path but also culture for COMPARISON: None. FINDINGS: After informed consent obtained the mesenteric soft tissue mass involving the lower anteri or abdominal wall was examined sonographically site chosen for percutaneous biopsy. Skin was prepped and draped in the usual fashion 1% lidocaine infiltrated from the skin down to the m ass. A 20 gauge biopsy apparatus was then utilized in 4 core biopsies were obtained. The needle was removed a dressing was applied. Additional testing including micro-/culture and sensitivity as well as fungal stains have been ordere d and therefore 2 additional core biopsies were obtained. The patient was recovered within the special observation unit and no complications were encountered t hroughout the procedure. The attending physician was present, and personally performed the procedure. IMPRESSION: Successful sonographically directed percutaneous biopsy involving the superficial lower abdominal soft tissue mass. Dictated by: Shamir DWYER Interpreted: Tucker Lee MD on 11/01/2016 at 13:43 Transcribed by: DULCE on 11/01/2016 at 13:45 Approved by: Tucker Lee M.D. on 11/01/2016 at 22:12
--- NOTE | 2016-11-01 13:55 | NUR ---
Social Work Initial Assessment Attempted: SW attempted to meet with patient at bedside to discuss discharge plan. Patient currently off unit for guided biopsy. Patient is a 26 year old female admitted on 10/30/16 for abdominal pain. Patient payer as medicare and [facility]. Patient resides in [place] with [place], . Patient also current with HD on M/W/. SW to follow up upon patient return to unit. SW to follow. PLAN: Initial Assessment pending. Possible home with family, via POV, pending clinical course Minerva LONGO
--- NOTE | 2016-11-01 13:58 | NUR ---
Pt transferred to [facility] room 1010 via wheelchair. Report called to Aimee PERES, biopsy site CDI.
[2016-11-01] MEDS: predniSONE 1 mg Tablet PO SCH (14:37)
[2016-11-01] MEDS: Isosorbide Mononitrate 60 mg ER24 Tablet PO SCH (14:37)
[2016-11-01] MEDS ORDERED: oxyCODONE-Acetamin 5-325 mg Tablet PO PRN (16:30)
[2016-11-01 19:46] VITALS: BP 118/69; PULSE 79; RESP 17; O2SAT 99
[2016-11-01 21:17] VITALS: BP 114/65
--- NOTE | 2016-11-01 21:19 | NUR ---
BP Med refusal Pt refused BP HS meds BP 114/65 HR 76. "I usually run high, so I don't need them now." No s/sx of hypo/hypertension noted.
[2016-11-02] MEDS: HYDROmorphone 1 mg/mL Inj IVPUSH PRN (01:25)
--- NOTE | 2016-11-02 02:53 | NUR ---
Pain C/O Left shoulder pain 02/01. IV Dilaudid given with good effect per Pt. Denies Nausea and gi upset.
[2016-11-02 05:45] VITALS: BP 119/70; PULSE 74; RESP 17; O2SAT 100
[2016-11-02] MEDS: Isosorbide Mononitrate 60 mg ER24 Tablet PO SCH (07:30)
[2016-11-02 07:57] LABS: BASOPHILS % (AUTO) 0.2 % (0-3); EOSINOPHILS % (AUTO) 6.4 % (0-5); MONOCYTES % (AUTO) 16.4 % (4-12); Mean Corpuscular Hemoglobin 30.9 pg (27.0-35.0); Mean Corpuscular Volume 93.6 fL (81-100); NEUTROPHILS % (AUTO) 56.6 % (40-74); Platelet Count 240 bil/L (150-400)
[2016-11-02 08:05] LABS: Magnesium 2.6 mg/dL (1.6-2.6); Phosphorus 7.7 mg/dL (2.5-4.9)
[2016-11-02] MEDS: Polyethylene Glycol (PEG) 17 Gm Powder PO SCH (08:30)
[2016-11-02] MEDS: predniSONE 1 mg Tablet PO SCH (08:48)
[2016-11-02] MEDS: Ondansetron 2 mg/mL 2 mL Inj IVPUSH PRN (08:51)
--- NOTE | 2016-11-02 09:13 | PCM.DIMED ---
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 Follow-up plan Please follow up the result of the biopsy with or . will see you in the dialysis center next week. Follow-up Provider: Isidro Rivera MD Follow-up with PCP in: 2 weeks Provider: Jl Taylor MD Follow-up in: 1 week Sebastian Lomeli MD Nov 02, 2016 09:13
--- NOTE | 2016-11-02 09:17 | NUR ---
Social Work: Initial Assessment Data: Pt is a 26 y/o female admitted for abdominal pain. Pt's PCP is Dr Rivera, pt's insurance is Medicare [facility]. EMR reviewed. Readmit score is 4. TRAVEL ADMINISTRATOR met with pt at bedside, role explained. Pt states that she lives in [place] with her spouse and daughter who she cares for. She states they have no DPOA and declined information, she has no stairs in her home, no medical equipment, no HH or SNF history, no LTC or VA benefits. Pt states she plans to drive home herself as she drove herself to the hospital. Pt is a current HD pt on Monday, Monday, and Fridays. No d/c planning needs anticipated at this time. TRAVEL ADMINISTRATOR will continue to follow if needs arise. Assessment: Pt who is independent at baseline. Plan: Pt will d/c home via POV when medically stable. No d/c planning needs anticipated at this time. TRAVEL ADMINISTRATOR will continue to follow if needs arise. QING Rendon Addendum: 11/02/16 at 0920 by GEMMA GRMIALDO Amended: Links added.
[2016-11-02 09:42] VITALS: BP 137/88; PULSE 70
--- NOTE | 2016-11-02 10:13 | NUR ---
Inpatient dialysis Patient transported by bed to room 244-1. Report received from Pranay Bush RN. Patient denies nausea. fish and game warden at bedside. Addendum: 11/02/16 at 1352 by CHAPIN YOON RN Dialysis ended. Report given to Pranay Bush RN. Patient transported by bed to room 1010.
[2016-11-02] MEDS: PYRAZINAMIDE 500 MG PO SCH (10:18)
--- NOTE | 2016-11-02 11:34 | PCM.PNMED ---
Subjective Date of Service Nov 02, 2016 Subjective s/p US guided biopsy yesterday. c/o pain RUQ. She is seen during HD. Stable. Exam Vital Signs Vital Sign - Last Date Time Temp Pulse Resp B/P Pulse Ox O2 Delivery O2 Flow Rate FiO2 11/02/16 09:42 70 11/02/16 05:45 36.6 17 119/70 100 Room Air Intake and Output 11/01/16 11/01/16 11/02/16 Cumulative From/Thru 15:00 23:00 07:00 10/30/16 19:46 - 11/02/16 05:45 Intake Total 240 ml 618 ml 2653 ml Output Total 100 ml 400 ml 1300 ml Balance 140 ml 218 ml 1353 ml Intake Oral 240 ml 618 ml 1653 ml IV Total 0 ml 1000 ml Output Urine Total 100 ml 400 ml 1300 ml # Voids 2 # Bowel Movements 1 1 Exam General appearance: Awake, alert, oriented x3. In no acute distress. Well developed, well nourished. HEENT: No pallor. No jaundice. No JVD. No lymphadenopathy. No thyroid enlargement. Moist mucous membranes. Atraumatic. PERRLA. Heart: Regular rhythm. Normal S1, S2. No murmurs, rubs, or gallops. Lungs: Clear to auscultation bilaterally. No crackles and no wheezes. No rhonchi. No accessory muscle use. Abdomen: Soft. Mild tenderness on the right lower quadrant and suprapubic area. No guarding. No rigidity. Extremities: No edema, cyanosis or clubbing of the fingers. Right AV fistula with good thrill and bruits. Lab and Diagnostics Result Diagram: 11/02/1661611/02/1617 X-Rays, CTs and MRIs Date of Service: 10/30/16 1121 PROCEDURE: CT ABDOMEN AND PELVIS WITH CONTRAST ([id number]) INDICATIONS: 26 year-old female with mesenteric mass. TECHNIQUE: Patient is scheduled for dialysis tomorrow. After the administration of oral and intravenous contrast, 5 mm thick sections acquired from the diaphragms to the symphysis. 5 mm thick coronal and sagittal reformats were performed. For radiation dose reduction, the following was used: automated exposure control, adjustment of mA and/or kV according to patient size. COMPARISON: [facility], CT, CT ABD PELVIS WO CON, 07/14/2016, 12: 03. [facility], CT, CT ABD PELVIS W CON, 07/10/2016, 9:02. [facility], CT, CT KUB, 04/23/2016, 0:10. [facility], CT, CT ABD PELVIS W CON, 03/10/2016, 13:13. [facility], CT, CT KUB, 2015, 23:33. [facility], CT, ABD/PELVIS W/CON (PNL), 01/26/2005, 17: 48. FINDINGS: Image quality: Excellent. ABDOMEN: Lung bases: Lung bases are clear. Heart size is normal. Solid organs: Liver and spleen are normal in size, with persistent anterior left hepatic lobe segmental altered perfusion. Gallbladder contains several dependent calcified gallstones. Biliary system is non-dilated. Pancreas enhances normally. No adrenal nodules. Kidneys are symmetrically atrophic, without hydronephrosis. Peritoneum and bowel: Stomach, small bowel, and colon loops are normal in caliber and wall thickness. The appendix appears normal in caliber. No free fluid or air. Nodes and vessels: On axial image 48, lobulated mesenteric mass has increased in size from 5.2 x 3.3 cm, up to 6.5 x 3.7 cm. No retroperitoneal or mesenteric adenopathy. Aorta and inferior vena cava are normal in caliber. Miscellaneous: No ventral hernias. PELVIS: Genitourinary: Bladder wall thickness is normal. Uterus is normal in size. Previously noted dominant hemorrhagic right ovarian cyst has resolved. No dominant left ovarian cyst measures 4.7 x 4.1 cm, with dependent hyperdense fluid-fluid level. Miscellaneous: No inguinal hernias or adenopathy. Bones: No suspicious bony lesions. No vertebral body compression fractures. IMPRESSION: 1. Interval increased size of central mesenteric lobulated mass, consistent with pathologically enlarged lymph node presumably from neoplasm. 2. Interval development of dominant 4.7 cm hemorrhagic left ovarian cyst, presumably functional given the patient's age. If no left adnexal symptoms are present, no further imaging followup would be needed for such lesions less than 5 cm. Previously noted dominant hemorrhagic right ovarian cyst has resolved. 3. Persistent anterior left hepatic lobe transient hepatic attenuation difference (RANCHO), secondary to altered perfusion with supplying vessels originating from the superior epigastric artery within the abdominal and chest wall. Finding is of uncertain underlying etiology. 4. Several dependent calcified gallstones again noted. 5. Symmetrically atrophic bilateral kidneys, consistent with known end-stage renal disease, For scheduled dialysis tomorrow. Dictated by: Héctor Bey M.D. on 10/30/2016 at 13:02 Approved by: Héctor Bey M.D. on 10/30/2016 at 13:15 Assessment & Plan 1. Acute on chronic abdominal pain. CAT scan showed increased size of central mesenteric lobulated mass, measures 6.5 x 3.7 cm. s/p US guided biopsy. 2. End-stage renal disease on hemodialysis every Monday, Monday, and Monday. 3. Tuberculous granuloma of abdominal peritoneum. 4. History of systemic lupus erythematosus. 5. Hypertension with hypertensive nephrosclerosis. PLANS: HD MWF. continue pain control. continue current BP meds. follow ID recommendation. VTE Prophylaxis: Sub-Q Heparin (Unfractionated) VTE Mechanical Devices: Intermittant Pneumatic CD Resuscitation Status: CPR: Attempt Resuscitation Myla Lobo MD Nov 02, 2016 11:34
--- NOTE | 2016-11-02 13:30 | NUR ---
Dialysis note: 3 1/2 hrs tx. 2000 ml net UF. RLA fistula. Pls see DTR for VS details. Qb 385-400. Heparin given. O2 @ 2L via NC on. Tolerated tx, slept at intervals. Fistula needle sites clotted w/in 10 min. Report given to Gabi Kaiser RN. Stable at time of transfer.
[2016-11-02 13:53] VITALS: BP 126/88; PULSE 88; RESP 18; O2SAT 100
--- NOTE | 2016-11-02 13:53 | PCM.DC.MED ---
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 End-stage renal disease on hemodialysis. enlarging left hematologic ovarian cyst Consultations Infectious disease Procedures XRay, CTs & MRIs Date of Service: 10/30/16 1121 PROCEDURE: CT ABDOMEN AND PELVIS WITH CONTRAST ([id number]) INDICATIONS: 26 year-old female with mesenteric mass. TECHNIQUE: Patient is scheduled for dialysis tomorrow. After the administration of oral and intravenous contrast, 5 mm thick sections acquired from the diaphragms to the symphysis. 5 mm thick coronal and sagittal reformats were performed. For radiation dose reduction, the following was used: automated exposure control, adjustment of mA and/or kV according to patient size. COMPARISON: [facility], CT, CT ABD PELVIS WO CON, 07/14/2016, 12: 03. [facility], CT, CT ABD PELVIS W CON, 07/10/2016, 9:02. [facility], CT, CT KUB, 04/23/2016, 0:10. [facility], CT, CT ABD PELVIS W CON, 03/10/2016, 13:13. [facility], CT, CT KUB, 2015, 23:33. [facility], CT, ABD/PELVIS W/CON (PNL), 01/26/2005, 17: 48. FINDINGS: Image quality: Excellent. ABDOMEN: Lung bases: Lung bases are clear. Heart size is normal. Solid organs: Liver and spleen are normal in size, with persistent anterior left hepatic lobe segmental altered perfusion. Gallbladder contains several dependent calcified gallstones. Biliary system is non-dilated. Pancreas enhances normally. No adrenal nodules. Kidneys are symmetrically atrophic, without hydronephrosis. Peritoneum and bowel: Stomach, small bowel, and colon loops are normal in caliber and wall thickness. The appendix appears normal in caliber. No free fluid or air. Nodes and vessels: On axial image 48, lobulated mesenteric mass has increased in size from 5.2 x 3.3 cm, up to 6.5 x 3.7 cm. No retroperitoneal or mesenteric adenopathy. Aorta and inferior vena cava are normal in caliber. Miscellaneous: No ventral hernias. PELVIS: Genitourinary: Bladder wall thickness is normal. Uterus is normal in size. Previously noted dominant hemorrhagic right ovarian cyst has resolved. No dominant left ovarian cyst measures 4.7 x 4.1 cm, with dependent hyperdense fluid-fluid level. Miscellaneous: No inguinal hernias or adenopathy. Bones: No suspicious bony lesions. No vertebral body compression fractures. IMPRESSION: 1. Interval increased size of central mesenteric lobulated mass, consistent with pathologically enlarged lymph node presumably from neoplasm. 2. Interval development of dominant 4.7 cm hemorrhagic left ovarian cyst, presumably functional given the patient's age. If no left adnexal symptoms are present, no further imaging followup would be needed for such lesions less than 5 cm. Previously noted dominant hemorrhagic right ovarian cyst has resolved. 3. Persistent anterior left hepatic lobe transient hepatic attenuation difference (RANCHO), secondary to altered perfusion with supplying vessels originating from the superior epigastric artery within the abdominal and chest wall. Finding is of uncertain underlying etiology. 4. Several dependent calcified gallstones again noted. 5. Symmetrically atrophic bilateral kidneys, consistent with known end-stage renal disease, For scheduled dialysis tomorrow. Dictated by: Héctor Bey M.D. on 10/30/2016 at 13:02 Approved by: Héctor Bey M.D. on 10/30/2016 at 13:15 Invasive Procedures PROCEDURE: US GUIDED BIOPSY ABDOMEN/RETROPERITONEUM INDICATIONS: mesenteric mass, send to path but also culture for COMPARISON: None. FINDINGS: After informed consent obtained the mesenteric soft tissue mass involving the lower anterior abdominal wall was examined sonographically site chosen for percutaneous biopsy. Skin was prepped and draped in the usual fashion 1% lidocaine infiltrated from the skin down to the mass. A 20 gauge biopsy apparatus was then utilized in 4 core biopsies were obtained. The needle was removed a dressing was applied. Additional testing including micro-/culture and sensitivity as well as fungal stains have been ordered and therefore 2 additional core biopsies were obtained. The patient was recovered within the special observation unit and no complications were encountered throughout the procedure. The attending physician was present, and personally performed the procedure. IMPRESSION: Successful sonographically directed percutaneous biopsy involving the superficial lower abdominal soft tissue mass. Dictated by: Shamir Centeno RRA Interpreted: Tucker Lee MD on 11/01/2016 at 13:43 Transcribed by: DULCE on 11/01/2016 at 13:45 Approved by: Tucker Lee M.D. 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 The patient reports onset of intermittent lower abdominal pain that has been ongoing since last year. She states the pain typically lasts 3-4 days and describes it similar to menstrual cramps. She reports the quality of the pain hasn't changed much but has been a little worse over the past couple of days. She takes Percocet for the pain. She reports fever this morning with some myalgias and in the ED there was a recorded temperature of 38.2. The patient underwent a scheduled CT scan of her abdomen and pelvis today, which showed an interval increase in the size of the central mesenteric lobulated mass. Patient says she was advised by Dr. Taylor of Infectious Disease to go to the ED for further evaluation given the CT findings in addition to her symptoms. The patient reports associated nausea, myalgia and constipation. She otherwise denies emesis, recent sick contacts, cough, rhinorrhea, shortness of breath, chest pain, dysuria. Patient reports menstrual periods every 3-4 months and believes her last menstrual period was in 06/2016. In the ED, vitals: temp 37.5, HR 104, RR 16 satting 96% on room air, BP 119/63. Notable labs include BUN 43, creatinine 6.27. Regular dialysis schedule is Monday, Monday and Monday. 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 . #acute chronic abdominal pain due to enlarging Mesenteric mass, POA, CT showed interval increased size of central mesenteric lobulated mass, consistent with pathologically enlarged lymph node presumably from neoplasm. Increase from 5.2 x 3.3 cm to 6.5 x 3.7 cm. Despite tx for presumed mesenteric TB, size has increased, which is concerning for malignancy. Patient was closely followed up by ID, gen Surg, decided to repeat a biopsy of the lesion, US-guided by IR done successfully. pain was relatively controlled with percocet, plan is to follow final pathology result with PCP, ID, continue anti-tb meds for now. All of infectious so far negative during this hospitalization including BCx, respiratory PCR, preliminary result of biopsys. 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 Continued prednisone and hydroxychloroquine #End-stage renal disease on hemodialysis.Continued HD per schedule - Monday, Monday, Monday #enlarging left hematologic ovarian cyst, 4.7cm, this finding seems not contributing to current presentation, ca-125 unremarkable, TIP STITCHER w/u not pursued. Exam Vital Signs (Last) Date Time Temp Pulse Resp B/P Pulse Ox O2 Delivery O2 Flow Rate FiO2 11/02/16 09:42 70 11/02/16 05:45 36.6 17 119/70 100 Room Air Exam NAD, comfortably laying down on the bed no JVD, MMM, no LAD RRR, nl s1, s2 no mrg CTAB, no w,c S,ND,NT,normoactive BS+, superficial wound on RLQ warm, no edema, pulses 2/2 Test 10/30/16 20:39 10/30/16 22:00 10/31/16 16:45 11/02/16 06:17 Lactic Acid Level 1.4mmol/L (0.4-2.0) C-Reactive Protein 3.1mg/dL (0.0-0.5) CA 125 Antigen 18.2U/mL (0.0-38.1) Prothrombin Time 10.7sec (8.1-12.5) Prothromb Time International Ratio 1.00ratio White Blood Count 5.2th/mm3 (3.8-10.1) Red Blood Count 3.46mil/mm3 (3.90-5.20) Hemoglobin 10.7g/dL (12.0-15.6) Hematocrit 32.4% (35.0-46.0) Mean Corpuscular Volume 93.6fL (81-100) Mean Corpuscular Hemoglobin 30.9pg (27.0-35.0) Mean Corpuscular Hemoglobin Concent 33.0% (32.0-37.0) Red Cell Distribution Width 13.3% (12.3-15.4) Platelet Count 240bil/L (150-400) Neutrophils (%) (Auto) 56.6% (40-74) Lymphocytes (%) (Auto) 20.2% (14-46) Monocytes (%) (Auto) 16.4% (4-12) Eosinophils (%) (Auto) 6.4% (0-5) Basophils (%) (Auto) 0.2% (0-3) Sodium Level 133mEq/L (134-144) Potassium Level 4.1mEq/L (3.5-5.2) Chloride Level 94mEq/L (97-108) Carbon Dioxide Level 22mmol/L (18-29) Blood Urea Nitrogen 41mg/dL (6-20) Creatinine 6.25mg/dL (0.57-1.00) Estimat Glomerular Filtration Rate 11mL/min (>59) Glucose Level 85mg/dL (60-99) Calcium Level 8.5mg/dL (8.5-10.1) Phosphorus Level 7.7mg/dL (2.5-4.9) Magnesium Level 2.6mg/dL (1.6-2.6) Total Bilirubin 0.6mg/dL (0.0-1.2) Aspartate Amino Transf (AST/SGOT) 19U/L (0-50) Alanine Aminotransferase (ALT/SGPT) 14U/L (0-32) Alkaline Phosphatase 103U/L (25-150) Total Protein 6.9g/dL (6.4-8.4) Albumin 3.5g/dL (3.4-5.0) Discharge Medications Discharge Medications Amlodipine (Amlodipine) 10 Mg Tablet 10 MG PO BID (Reported) Carvedilol (Carvedilol) 6.25 Mg Tablet 6.25 MG PO BID (Reported) Ethambutol (Ethambutol) 400 Mg Tablet 800 MG PO Mo,We,Fr (Reported) After Dialysis (total of 900mg) Ethambutol (Ethambutol) 100 Mg Tablet 100 MG PO Mo,We,Fr (Reported) After Dialysis (total of 900mg) Hydroxychloroquine Sulfate (Hydroxychloroquine Sulfate) 200 Mg Tablet 1 TAB PO HS (Reported) Isoniazid (Isoniazid) 300 Mg Tablet 300 MG PO Mo,We,Fr (Reported) Take After Dialysis Isosorbide MN ER (Isosorbide MN ER) 120 Mg Tab.er.24h 120 MG PO DAILY (Reported ) Lisinopril (Lisinopril) 5 Mg Tablet 5 MG PO DAILY (Reported) PredniSONE (PredniSONE) 1 Mg Tab 4 MG PO DAILY (Reported) Pyridoxine (Vitamin B-6) 50 Mg Tablet 200 MG PO Every Other Day (Reported) Rifampin (Rifampin) 300 Mg Capsule 600 MG PO DAILY (Reported) As needed Ondansetron (Zofran) 4 Mg Tablet 4 MG PO Q6H PRN PRN For Nausea (Reported) Oxycodone HCl/Acetaminophen 5-325 (Endocet 5-325) 1 Each Tablet 1-2 TABLET PO Q4H PRN PRN For Pain (Reported) Polyethylene Glycol (Polyox Wsr-301) 1 Gm Powder 1 APPLIC MC DAILY PRN PRN For Constipation (Reported) Additional med instructions You can take percocet for your pain as needed every 4 to 6 hours Followup Plan Disposition: home Follow-up plan Please follow up the result of the biopsy with or . will see you in the dialysis center next week. Discharge Diet: Low fat, Low Sodium, Heart Healthy, Renal Diet Discharge Activity: No restrictions Patient Instructions You were hospitalized with abdominal pain, found to have increasing size of mass in your belly, underwent biopsy, tolerated well. Follow-up Provider: Isidro Rivera MD Follow-up with PCP in: 2 weeks Provider: Jl Taylor MD Follow-up in: 1 week Time spent 65min Sebastian Lomeli MD Nov 02, 2016 13:53
--- NOTE | 2016-11-02 14:20 | NUR ---
Off unit for dialysis/Discharge Pt off unit to [facility] for dialysis from 0900 to 1300. Report given and taken from JA Leos. Pt tolerated dialysis well and denies pain and nausea upon return. Her fistula pressure dressing is CDI and VSS. Pt is eager to DC home. All home medications were retrieved from pharmacy and confirmed by pt. She refused her post dialysis medications at this time and will take them when she gets home with lunch. Discharge time was 1420.
--- NOTE | 2016-11-03 14:01 | PATH ---
SURGICAL PATHOLOGY Attending Physician:Carlos Alves CASE STATUS: Signed Out PATIENT NAME: BARBIE DE LOS SANTOS PID: [id number] : 1990 DATE COLLECTED:11/01/2016 23:27 SPECIMEN: Soft Tissue Mass, Biopsy CLINICAL HISTORY: 1). MESENTERIC MASS CORE BIOPSY FINAL DIAGNOSIS: 1.MESENTERIC MASS CORE BIOPSY: NECROTIZING GRANULOMATOUS INFLAMMATION, SEE COMMENT. NEGATIVE FOR METASTATIC CARCINOMA AND LYMPHOMA. ICD10 code A31.9 NOTE: The history of necrotizing granulomas with acid-fast bacilli is noted ([id number], 03/22/2016). The H&E histology is consistent with an acid-fast infection. A stain for acid-fast bacilli will be performed, and the results reported in an addendum. GROSS DESCRIPTION: The specimen is received in one formalin filled container labeled with the patient's name, sublabeled "mesenteric mass" and consists of multiple extremely tiny cylindrical shaped portions of tissue which aggregate to 0.3 x 0.2 x 0.1 CM. The specimen is entirely submitted in one cassette. 11/02/2016 DAC MICRO DESCRIPTION: Sections are of small fragments of tissue with focal necrosis surrounded by apparent histiocytes and rare multinucleated cells. No definite epithelial cells identified. Immunohistochemical stains are performed to further evaluate the tissue. The patient tissue is stained with the following antibodies, with the following results. Positive controls stain appropriately. AntibodyResult CARMENZA Keratin (CARMENZA)Negative CD68 (PG-M1)Positive CD45 LCA (L60)Negative (positive internal control) Interpretation: These results are consistent with the H&E impression of granulomatous inflammation. This test was developed and its performance characteristics determined by [employer]. It has not been cleared or approved by the U. S. Food and Drug Administration. The FDA has determined that such clearance or approval is not necessary. This test is used for clinical purposes. It should not be regarded as investigational or for research. ICD-9 CODES: CPT CODES: 1: 19488, 74325, 34826, 44200, 40532 PROCEDURE/ADDENDA: Immunohistochemistry SPI Interpretation {Not Entered} Results-Comments An AFB stain is performed on the biopsy tissue to look for acid-fast bacilli. The patient tissue is negative for acid-fast bacilli. The positive control stains appropriately. Addendum Diagnosis: AFB stain is negative for acid-fast organisms. (It should be noted that there are only tiny tissue fragments in this biopsy). These findings were discussed by telephone with Dr. Jl Taylor on 11/04/[address] Posey. Electronically Signed Out Keira Posey MD Electronically Signed Out Keira Posey MD [facility] [address], [place] [address] Technical component performed at [facility], [facility] [address], [place], [address]
[2017-01-09] MEDS ORDERED: CALC667C9 PO (10:42)
== END 2016-11-02 13:25 | disposition home or self-care (01) | DRG 391 ==
LOC: SED 19:39 → OSC 22:57
PROVIDERS: ADMIT Internal Medicine; ATTEND Internal Medicine
PROC: 5A1D60Z (ICD-10-PCS; 2016-10-31)
PROC: 0JB83ZX Excision of Abdomen Subcutaneous Tissue and Fascia, Percutaneous Approach, Diagnostic (ICD-10-PCS; principal; 2016-11-01)
DX: R19.09 Other intra-abdominal and pelvic swelling, mass and lump (principal); A18.3 Tuberculosis of intestines, peritoneum and mesenteric glands; N18.6 End stage renal disease; I13.2 Hypertensive heart and chronic kidney disease with heart failure and with stage 5 chronic kidney disease, or end stage renal disease; I42.0 Dilated cardiomyopathy; M32.14 Glomerular disease in systemic lupus erythematosus; Z99.2 Dependence on renal dialysis; I50.9 Heart failure, unspecified

== ENCOUNTER 2016-12-26 19:07 | Emergency (ER) | payer MEDICARE, OTHER ==
[~2016-12-26] VITALS: Ht 157.5 cm; Wt 55.5 kg
[~2016-12-26 19:07] MED LIST changes: -DOXY100T2 PO; -ERGO500050 PO; -PYRA500T11 PO; -TRAM50TA2 PO
[2016-12-26 19:10] VITALS: BP 141/94; PULSE 85; RESP 16; O2SAT 100
--- NOTE | 2016-12-26 20:25 | ED.REPORT ---
HPI-General Illness Date of Service Dec 26, 2016 ED Provider: Kristian Lester MD This is a 26 year old female with a history of CHF, HTN, abdominal mass, systemic lupus, ERSD on dialysis presenting to the emergency department due to throat swelling that began 2 hours ago. Pt had a CT neck 5 hours ago with contrast and subsequently took a three-hour nap. She woke up from sleep with throat swelling, facial swelling, redness to the face, diffuse body aches, and right eye itching. She denies any other rashes at this time. She denies SOB, difficult speech, or difficulty swallowing. Nursing Notes Stated Complaint: SWOLLEN FACE,BODY HURTS,THROAT HURTS Chief Complaint: General Complaint Nursing Notes Reviewed: Yes Allergies: Coded Allergies: ketorolac (Verified Allergy, Intermediate, 12/26/16) ITCHING, HANDS SWELLED Scheduled Amlodipine (Amlodipine) 10 Mg Tablet 10 MG PO BID Carvedilol (Carvedilol) 6.25 Mg Tablet 6.25 MG PO BID Ethambutol (Ethambutol) 400 Mg Tablet 800 MG PO Mo,We,Fr After Dialysis (total of 900mg) Ethambutol (Ethambutol) 100 Mg Tablet 100 MG PO Mo,We,Fr After Dialysis (total of 900mg) Hydroxychloroquine Sulfate (Hydroxychloroquine Sulfate) 200 Mg Tablet 1 TAB PO HS Isoniazid (Isoniazid) 300 Mg Tablet 300 MG PO Mo,We,Fr Take After Dialysis Isosorbide MN ER (Isosorbide MN ER) 120 Mg Tab.er.24h 120 MG PO DAILY Lisinopril (Lisinopril) 5 Mg Tablet 5 MG PO DAILY PredniSONE (PredniSONE) 1 Mg Tab 4 MG PO DAILY Pyridoxine (Vitamin B-6) 50 Mg Tablet 200 MG PO Every Other Day Rifampin (Rifampin) 300 Mg Capsule 600 MG PO DAILY Scheduled PRN Ondansetron (Zofran) 4 Mg Tablet 4 MG PO Q6H PRN PRN For Nausea Oxycodone HCl/Acetaminophen 5-325 (Endocet 5-325) 1 Each Tablet 1-2 TABLET PO Q4H PRN PRN For Pain Polyethylene Glycol (Polyox Wsr-301) 1 Gm Powder 1 APPLIC MC DAILY PRN PRN For Constipation General Time Seen by MD: 19:16 Chief Complaint Other Hx Obtained From: Patient Arrived By: Walk-in Sudden in Onset?: Yes Onset Occurred: 1 - 4 hours ago Symptom Duration: Since onset Severity: Current: Mild Pertinent Negative: Pt denies other symptoms Recent Healthcare: No recent hospitalization, Recent doctor visit Similar Sx Previous: No Past Medical History Past Medical History Notes: PCP: Dr. Rivera Past Medical History Peritoneal tuberculous infection Abdominal mass Systemic lupus erythematosus Systemic lupus erythematosus glomerulonephritis syndrome ESRD on dialysis Hx of pneumonia Anxiety Congestive cardiomyopathy Cataracts Ovarian cysts Reports: Congestive heart failure, Hypertension Reports: Depression Past Surgical History Peritoneal Catheter R Fistula Abdominal mass biopsy Smoking History Never Smoker Social History Alcohol Use: "Social" Drug Use: Denies drug use Other Social History: Local resident Ambulatory Status Independent Review of Systems Full Review of Systems Constitutional: Denies: Chills, Fever Ears / Nose / Throat: Reports: Throat pain, Throat swelling Respiratory: Denies: Shortness of breath Skin: Reports Itching, Reports Rash, Reports Swelling, Denies Diaphoresis Neurologic: Denies: Change LOC, Headache, Lightheaded, Numbness Complete sys rev & neg: except as marked. Physical Exam Vital Signs Vital Signs Date Time Temp Pulse Resp B/P Pulse Ox O2 Delivery O2 Flow Rate FiO2 12/26/16 23:51 36.9 74 15 108/70 100 Room Air 12/26/16 22:16 37.5 12/26/16 21:06 36.6 78 16 112/73 99 Room Air 12/26/16 19:10 36.8 85 16 141/94 100 Room Air Initial VS: Reviewed Respiratory: Breath sounds normal, Clear to auscultation, No respiratory distress Cardiovascular: Regular rate & rhythm, Heart sounds normal, Intact distal pulses Abdomen / GI: Soft, Non-tender, No guarding, No rebound, No distention Extremities: Vascular intact, Neuro intact, No swelling, No tenderness Neurologic: Alert, Oriented, Nonfocal Psychiatric: Mood/affect normal, Behavior normal, Normal thought content General/Constitutional: Awake, Alert Head / Eyes: PERRL Flushed face, erythematous. ENT: Mucous membranes moist speech normal, no angioedema of tongue, no difficulty managing secretions, voice is normal Respiratory / Chest: Breath sounds NL, No respiratory distress, No rales, No rhonchi, No wheezing no bronchospasm Abdomen: Soft, Non-tender, No guarding, No rebound, BS normoactive, No distention Multiple scars across abdomen, dialysis fistula present Interpretation & Diagnostics Interpretation & Diagnostics: CT of the neck he did at lower adenopathy, please see report. No major process was identified or acute process intervention Re-Eval/Medical Decision Med Decision/Clinical Course This is a 26-year-old female had a CT of her neck with contrast returned this afternoon, went home took a nap, woke up and felt very flushed, her face was red and hot, possibly mildly itchy, and her throat felt tingly-C she is concerned about allergic reaction to contrast dye, or the lidocaine that was administered for the IV. Is no previous history of contrast allergies. Immediately came in. On exam she is in no distress. The throat discomfort that she reported having initially has resolved, but her face is bright red, and slightly itchy. She has no bronchospasm, no visible angioedema, she does report mild nausea, and the rest of her skin exam is normal. She is a dialysis patient. Overall presentation is concerning for an allergic reaction, possibly contrast dyes most likely etiology. However I do not appreciate evidence of anaphylaxis. She receives a dose of Zofran for the nausea for resolution, dose of IM Benadryl, and oral dexamethasone-and was observed. She improved. She felt warm, there is concern about fever, however actual temperature measurements were normal with no actual fever. She is improved on reevaluation, feels much better, has had no progression-she still has some faint erythema of the face. She is being discharged on continued Benadryl, and oral dexamethasone. She is advised to lose contrast dye as an allergy, though if indicated that she should be a care for CT imaging with contrast if needed following pretreatment in the future. Precautions reviewed. Patient is discharged in improved condition. Source of Hx: Old records Differential Diagnosis: Negative: Abdominal pain, Acute coronary syndrome, Allergies, Pneumonia Counseled Regarding: Diagnosis, Lab results, Need for follow-up Discharge & Departure Primary Impression: Allergic reaction to contrast dye Encounter type: initial encounter Qualified Code: T50.8X5A - Adverse effect of diagnostic agents, initial encounter Disposition: Home Discharge Condition All VS Reviewed: Yes Condition: Stable Additional Instructions: 1. I am suspicious this was a mild contusion to the contrast dye received from the CT scan. 2. Please list contrast dye as a mild allergy - you could still receive a CT scan with dye, but generally would require pretreatment with some medications to try and prevent recurrence. 3. Continue Benadryl 25 mg to 50 mg up to every 4 hours as needed for redness or itching 4. Take the remaining dose of dexamethasone-empty syringe into some juice and drink tomorrow. This is a steroid medicine which should help continue resolution of symptoms. 5. Return if new or worsening symptoms occur Referrals: Isidro Rivera MD (PCP) Scribe Attestation Portions of this note were transcribed by Abran Stack. I, Dr. Lester personally performed the history, physical exam and medical decision-making; I reviewed and confirmed the accuracy of the information in the transcribed note. Signed by: esperanza Seth. 12/26/2016, 23:30. Kristian Lester MD Dec 26, 2016 20:25 ABRAN STACK Dec 26, 2016 20:32
[2016-12-26] MEDS ORDERED: Ondansetron 8 mg ODT Tablet PO ONE (20:30)
[2016-12-26] MEDS ORDERED: Dexamethasone 20 mg/2 mL Oral Solution PO ONE ×2 (20:30→23:40)
[2016-12-26 21:06] VITALS: BP 112/73; PULSE 78; RESP 16; O2SAT 99
[2016-12-26 23:51] VITALS: BP 108/70; PULSE 74; RESP 15; O2SAT 100
[2017-01-09] MEDS ORDERED: CALC667C9 PO (10:42)
== END 2016-12-26 23:46 | disposition home or self-care (01) ==
LOC: SED 19:07
DX: R22.0 Localized swelling, mass and lump, head (principal); R22.1 Localized swelling, mass and lump, neck; H57.8 Other specified disorders of eye and adnexa; T50.8X5A Adverse effect of diagnostic agents, initial encounter; Y93.89 Activity, other specified; Y92.89 Other specified places as the place of occurrence of the external cause; Y99.8 Other external cause status; I13.2 Hypertensive heart and chronic kidney disease with heart failure and with stage 5 chronic kidney disease, or end stage renal disease; I50.9 Heart failure, unspecified; I42.0 Dilated cardiomyopathy; N18.6 End stage renal disease; M32.14 Glomerular disease in systemic lupus erythematosus; Z99.2 Dependence on renal dialysis; Z88.8 Allergy status to other drugs, medicaments and biological substances
CPT/HCPCS: 70491; 71260; 96372; 99283; J1200; Q9967

== ENCOUNTER 2017-01-10 09:07 | Day surgery (SDC) | payer MEDICARE, OTHER ==
[2017-01-10] VITALS (13 sets, daily range): BP systolic 96–126; BP diastolic 50–77; PULSE 63–95; RESP 10–19; O2SAT 95–100
[~2017-01-10] VITALS: Ht 157.5 cm; Wt 55.6 kg
[~2017-01-10 09:07] MED LIST changes: +CALC667C9 PO; +CeFAZolin Inj 2 GM in IV Premix 1 EACH IV ONE; -ETHA100T13 PO; +Heparin 5,000 Unit/mL Inj SUBQ ONE; -LISI-571 PO; +Lactated Ringer's 1,000 ML IV SCH; -MYA400 PO; -ONDA4TAB6 PO; -OXYC-407 PO; -POLY1POW MC
[2017-01-10] MEDS ORDERED: Neostigmine 1 mg/mL 10 mL Inj ONE (09:08)
[2017-01-10] MEDS ORDERED: Glycopyrrolate 0.2 MG/ML 1mL Inj ONE (09:08)
[2017-01-10] MEDS ORDERED: Phenylephrine/NS 100 mCg/mL 10 mL Syringe IVPUSH ONE (09:08)
[2017-01-10] MEDS ORDERED: fentaNYL-PF 50 mCg/mL 2 mL Inj ONE (09:08)
[2017-01-10] MEDS ORDERED: Propofol 10,000 mCg/mL 20 mL Inj ONE (09:08)
[2017-01-10] MEDS ORDERED: Ondansetron 2 mg/mL 2 mL Inj ONE (09:08)
[2017-01-10] MEDS ORDERED: Dexamethasone 4 mg/mL Inj ONE (09:08)
[2017-01-10] MEDS ORDERED: 0.9% Sodium Chloride 500 ML IV ONE (09:57)
--- NOTE | 2017-01-10 10:31 | PCM.HPANE ---
Patient Data Date of Service: Jan 10, 2017 (1024) Surgeon Admitting Provider: Attending Provider:Paul Nobles MD Primary Care Physician:Isidro Rivera MD Other Provider:Agustín Trinh Anesthesia Reason for Visit Mesenteric Mass Ht/WT & BMI Height (Feet): 5 Height (Inches): 2 Weight (Kilograms): 55.6 Body Mass Index 22.00 Allergies Coded Allergies: Contrast Media (Verified Adverse Reaction, Severe, Redness of face, ) Occured about one hour following IV contrast administration for CT of the neck with contrast. She developed redness of the face, a flushed feeling, and a persisted. She had no objective findings of qi anaphylaxis, she improved with Benadryl and steroid administration. ketorolac (Verified Adverse Reaction, Severe, hands itching,swelling, 01/09) Allergies vicodin and percocet cause PONV Past Anesthesia History Anesthesia History: Positive for:: Anesthesia Reactions (PROLONGED N/V), Denies:: Abnormal Airway, Difficult Intubation, Fam Anesthesia Reaction, Fam Malignant Hypertherm, Malignant Hyperthermia Diabetes History Hx Diabetes?: No Current Bedside Blood Glucose: 77 MRSA MRSA: No Medications Home Meds Incl Beta Ga: Yes Date Beta Ga Taken: Jan 10, 2017 Time Beta Ga Taken: 0900 Reported Medications Calcium Acetate 667 Mg Opgwjts870 Mg PO TID 01/09/17 Carvedilol 6.25 Mg Brcxly20.5 Mg PO BID 07/10/16 PredniSONE 1 Mg Tab4 Mg PO DAILY 06/03/16 Isosorbide MN ER 120 Mg Tab.er.64b122 Mg PO DAILY 06/02/16 Amlodipine 10 Mg Uuxpeh79 Mg PO BID 03/30/16 Hydroxychloroquine Sulfate 200 Mg Lsamwt308 Mg PO HS 03/19/14 Discontinued Reported Medications Isoniazid 300 Mg Mlngtp451 Mg PO Mo,We,Fr Take After Dialysis (stop 12/28/16) 07/10/16 Pyridoxine (Vitamin B-6)50 Mg Wusdgd800 Mg PO DAILY 07/10/16 Rifampin 300 Mg Nanqiqv782 Mg PO DAILY stop 12/28/16 06/02/16 Ethambutol 100 Mg Xohtlu354 Mg PO Mo,We,Fr After Dialysis (total of 900mg) 07/10/16 Oxycodone HCl/Acetaminophen 5-325 (Endocet 5-325)1 Each Tablet1-2 Tablet PO Q4H PRN For Pain 07/10/16 Ethambutol 400 Mg Vognjq142 Mg PO Mo,We,Fr After Dialysis (total of 900mg) 06/02/16 Ondansetron (Zofran)4 Mg Tablet4 Mg PO Q6H PRN For Nausea 06/02/16 Polyethylene Glycol (Polyox Wsr-301)1 Gm Powder1 Applic MC DAILY PRN For Constipation 03/30/16 Lisinopril 5 Mg Tablet5 Mg PO DAILY 03/09/16 History History of ENT Problems?: Yes HEENT History: Positive for:: Cataracts Denies:: Abnormal Airway Difficult Intubation Hearing Problem Denture Type: Full- Upper (teeth wnl) Teeth Condition: Missing Teeth (none missing) Other HEENT Pertinent History: teeth wnl Hx of Heart Problems?: Yes Cardiovascular History: Positive for:: Chest Pain (DEEMED NON CARDIAC) Congestive Heart Failure ( 2012 CARDIOMYOPATHY) Heart Murmur (GR I/ ZACH ECHO 12/2015 EF 55-60%) Hypertension Valvular Heart Disease (MILD MR,TR) Denies:: Cardiac Surgery Edema Irregular Heartbeat Pacemaker Thrombophlebitis Other Cardiac History: HX ANEMIA Hx of Respiratory Problem?: Yes Respiratory History: Positive for:: Dyspnea (GREENE) Pneumonia (X3 HOS[facility] 11/2013 ) Denies:: Asthma COPD Chest Surgery Emphysema Hemoptysis Tuberculosis Use of C-PAP Machine Other Resp Pertinent History: no current problems Hx Neurologic Problems?: Yes Neurological History: Denies:: Alzheimer's Disease CVA Dementia Dizziness Headaches Parkinson's Disease Seizures Other Neurological Pertinent: HX SHINGLES X2 Hx of GI Problems?: Yes Gastrointestinal History: Denies:: Cirrhosis Other GI Pertinent History: MESENTERIC MASS=CURRENT PROBLEM S/P MASS BX X2,LAP W/ NODULE BX MASS MAY BE TB-PT CURRENTLY BEING TX, BUT SOMEWHAT NON-COMPLIANT ABOUT FOLLOW UP. Other History/Comment none Hx of Problems?: Yes Genitourinary History: Positive for:: HX of Hemodialysis (M-W-F S/P RT A/V FISTULA, TUNNELED CATH LUPUS NEPHRITIS) Urinary Tract Infection (HX OF) Denies:: Kidney Stones HX of Peritoneal Dialysis: Yes (S/P INSERTION & REMOVAL OF PD CATH) Other Pertinent History: hemodialysis Female Hx: Denies:: Endometriosis Pelvic Inflammatory Problems with Breasts? Skin History: Positive for:: History Skin Disorders? (RASH FROM LUPUS, SCARRING ON BACK, ABDOMEN FROM SHINGLES) Denies:: Pressure Ulcers Hx Musculoskeletal Problems?: Yes Musculoskeletal History: Positive for:: Systemic Lupus Denies:: Back Injury (C/OF BACK PAIN) Joint Replacement Musculoskeletal Trauma Hx of Psycho/Social Problems?: Yes Psycho Social History: Positive for:: Anxiety Hx Depression Denies:: Bipolar Disorder Suicide Attempt Other Psych Pertinent History: none Hx Surgeries?: Yes (TUNNELED CATH,PERITONEAL DIALYSIS CATH, R A/V FISTULA, CATARACTS) Hx Any Other Health Problems?: Yes Other History: Positive for:: Endocrine Disease (Lupus) Hospitalization (Lupus related hospitalizations) Denies:: Cancer Thyroid Disease History Blood Transfusions: Positive for:: Blood Transfusions Denies:: Blood Transfuse Reaction Hx Diabetes: NoBedside Blood Glucose: 77 Hx Alcohol Use: Yes (Occasional)Hx Substance Use: No Smoking Status: Never Smoker Have You Smoked inLast 12 mo: No Stop/Bang S-Snoring: Do You Snore Loudly: No T-Tired: feel tired, fatigued: Yes O-Obsered: Observed not breath: No P-Blood Pressure: treated: Yes B- Body Mass Index > 35 kg/m2: No A- Age over 50: No N- Neck Large Circumference: No G- Gender Male: No ADOLPH Total Score: 2 ADOLPH Risk Assessment: Low Risk, <3 Yes Risk Assessment Category Category 1A: Patient has history of documented sleep apnea, and HAS NOT received any narcotic, sedative or anesthesia administration during this stay. Category 1B: Patient has history of documented sleep apnea, and HAS received any narcotic , sedative or anesthesia administration during this stay Category 2: Patient has SUSPECTED Obstructive Sleep Apnea, and HAS received any narcotic , sedative or anesthesia administration during this stay. Category 3: Patient has SUSPECTED Obstructive Sleep Apnea and HAS NOT received narcotic, sedative or anesthesia administration during this stay. Category 4: Outpatient in Procedural Areas with known sleep apnea or who screen positive for High Risk via the STOP/BANG questionnaire. Exam Exam Vital Signs Vital Signs Date Time Temp Pulse Resp B/P Pulse Ox O2 Delivery O2 Flow Rate FiO2 01/10/17 09:56 36.5 82 16 113/71 100 Room Air General Appearance: Alert, Oriented X3 HEENT/AIRWAY: MP 1, Neck Movement (FULL ROM), Mouth Opening (>3FB) Lungs: Clear to Auscultation Heart: Exam Unremarkable Meds/Labs/Diagnostics Admission Meds Current Medications Sodium Chloride (Normal Saline) 500 ml @ ud STK-MED ONCE IV Last administered on 01/10/17t 09:57; Start 01/10/17 at 09:57; Stop 01/10/17 at 09:58; Status DC Bedside Blood Glucose: 77 Labs Test 01/10/17 09:54 Plan Impression Patient chart reviewed, patient interviewed and anesthestic plan with risks, benefits, and alternatives discussed, and informed consent obtained. Change this to NPO Status per: Yes (>8hrs) ASA Physical Status: ASA3 Severe Disease Anesthetic Plan: GA Bene/Risks/Altern/Consents: Yes HP Complete Prior to Induction: Yes Yaya Millan MD Jan 10, 2017 10:31
[2017-01-10] MEDS ORDERED: Heparin 5,000 Unit/mL Inj ONE (10:35)
[2017-01-10] MEDS ORDERED: Bupivacaine-MPF 0.5% 30 mL Inj INFILTRATE ONE (11:37)
--- NOTE | 2017-01-10 13:37 | PCM.ANEP1 ---
Post Anesthesia Phase 1 PACU Phase 1 Assessment Date of Service: Jan 10, 2017 (1024) Vital Signs 37.3, 70, 18, 106/62, 100% Vital Signs Date Time Temp Pulse Resp B/P Pulse Ox O2 Delivery O2 Flow Rate FiO2 01/10/17 09:56 36.5 82 16 113/71 100 Room Air Anesthetic Administered: GA Level of Alertness: Awake, talking GUTIERREZ's with Equal Strength: Yes Pain: No Nausea or Vomiting: No Cardiovascular Function and Hy: Yes Oxygen Delivery: Simple Mask Lungs: Clear to Auscultation Dermatome Level: Full Sensation Summary UNEVENTFUL GETA Complications: Yes Follow up Care: No Yaya Millan MD Jan 10, 2017 13:37
[2017-01-10] MEDS ORDERED: oxyCODONE-Acetamin 5-325 mg Tablet PO PRN (13:50)
[2017-01-10] MEDS ORDERED: Ondansetron 2 mg/mL 2 mL Inj IVPUSH PRN ×2 (13:50→14:00)
[2017-01-10] MEDS ORDERED: Lactated Ringer's 1,000 ML IV SCH (13:58)
[2017-01-10] MEDS ORDERED: Lactated Ringer's 500 ML IV PRN (13:58)
[2017-01-10] MEDS ORDERED: MetoCLOpramide 5 mg/mL 2 mL Inj IVPUSH PRN (14:00)
[2017-01-10] MEDS ORDERED: Dexamethasone 4 mg/mL Inj IVPUSH PRN (14:00)
[2017-01-10] MEDS ORDERED: HYDROmorphone 0.5 mg/0.5 mL iSecure Syringe ONE (14:03)
[2017-01-10] MEDS: fentaNYL-PF 50 mCg/mL 2 mL Inj IVPUSH PRN ×3 (14:17→15:24)
[2017-01-10] MEDS: HYDROmorphone 1 mg/mL Inj IVPUSH PRN ×2 (14:56→15:24)
[2017-01-10] MEDS ORDERED: 0.9% Sodium Chloride 1,000 ML IV ONE (15:00)
--- NOTE | 2017-01-10 15:54 | OP ---
[address] [address] OPERATIVE REPORT PATIENT: BARBIE DE LOS SANTOS : 1990 MR#: [id number] ADMIT: 01/10/2017 JOB ID: [id number] DATE OF SURGERY: 01/10/2017 PREOPERATIVE DIAGNOSIS(ES): 1. Mesenteric mass. 2. Systemic lupus erythematosus. 3. End-stage renal failure. POSTOPERATIVE DIAGNOSIS(ES): 1. Mesenteric mass. 2. Systemic lupus erythematosus. 3. End-stage renal failure. 4. Extensive intra-abdominal adhesions. OPERATION: Diagnostic laparoscopy with extensive prolonged lysis of adhesions followed by biopsy of mesenteric mass. SURGEON: Paul Nobles MD. AERONAUTICAL PROJECT ENGINEER: Senthil Gillis PA-C. 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 She has had multiple percutaneous biopsies of a mesenteric mass showing necrotizing granulomas. She has been treated for TB, but the masses seem unresponsive. A CT scan showed an increasing mesenteric mass and after discussing options with the patient, it was elected to proceed with diagnostic laparoscopy with biopsy of the mesenteric mass. FINDINGS: She had extensive intra-abdominal adhesions. The vast majority of the operation which lasted two hours involved lysing adhesions. After freeing up the adhesions and inspecting the small bowel mesentery, I could see a bulging mass. It may not be the exact mass identified by the CT scan, but I think it is packaging sales representative of her problem. It did appear to be either a necrotic node and it was essentially removed in small pieces. Tissue was sent for routine Pathology, but also sent for [employer] PCR and VERONICA direct bacterial PCR, and VERONICA direct fungus PCR, all to the [facility]. Then routine cultures plus AFB cultures, fungal and bacterial cultures. She also had a large collection of fluid in her pelvis that I think represented walled off ascitic fluid and this was aspirated and also sent for AFB fungal and bacterial cultures. Lastly, a small abdominal wall nodule was removed and sent to Pathology. PROCEDURE: At the beginning and end of the operation, the SCOAP checklist was completed. General endotracheal anesthetic was induced. Using ChloraPrep, she was prepped and draped in the usual fashion. She had on pneumatic hose and received intravenous antibiotics and subcutaneous heparin. Pneumoperitoneum was established through a left subcostal incision. All trocar sites were infiltrated with 0.5% plain bupivacaine. Using the Veress needle, pneumoperitoneum was established, and then through the same site, optical port was used to place a 5 mm port. Eventually, three other 5 mm ports were placed under direct laparoscopic visualization. As stated above, there is diffuse and significant intra-abdominal adhesions and these were carefully taken down with a combination of blunt and sharp dissection. No cautery or other energy source was used. There was no evidence of a serosal tear or enterotomy. Eventually, I worked my way into the pelvis where the ascitic fluid was identified and using a "Lukey" tube, it was aspirated and sent for cultures as stated above. Further mobilization of interloop adhesions ultimately allowed me to inspect the mesentery, and I was clearly able to find a bulging mass in the mesentery, which was then exposed with blunt dissection. I then sharply cut into it, and found a cheesy-like material coming from it. I removed large portions of that as well as wall, and I suspect this originated in mesenteric lymph nodes. It was sent for studies as listed above. There was no evidence of injury to the mesenteric arcade. A small abdominal wall nodule from the right lower quadrant was then removed and sent to Pathology. Having felt confident of obtaining packaging sales representative tissue, I again inspected the small bowel, saw no evidence of serosal injury or enterotomy. The abdomen was deflated. Trocars were removed without evidence of bleeding. Trocar incisions were closed with subcuticular 4-0 Vicryl. Dermabond was used over the incisions. The estimated blood loss was 5 cc or less. Specimens as listed above. No apparent complications. The final sponge, needle, and instrument counts were announced as correct and the patient was returned to recovery room in stable condition. Critical assistance was provided by Senthil Gillis PA-C.
--- NOTE | 2017-01-17 14:27 | PATH ---
SURGICAL PATHOLOGY Attending Physician:Carlos Alves CASE STATUS: Signed Out PATIENT NAME: BARBIE DE LOS SANTOS PID: [id number] : 1990 DATE COLLECTED:01/10/2017 00:00 SPECIMEN: 1: Mass, NOS 2: Mass, NOS CLINICAL HISTORY: MESENTERIC MASS 1). ABDOMINAL WALL NODULE 2). MESENTERIC MASS FINAL DIAGNOSIS: 1.ABDOMINAL WALL NODULE: CHRONIC INFLAMMATION WITH NUMEROUS HEMOSIDERIN-LADEN MACROPHAGES AND SMALL GRANULOMAS WITHOUT NECROSIS. ACID FAST ORGANISM STAINS AND FUNGUS STAIN NEGATIVE. NEGATIVE FOR MALIGNANCY AND SIGNIFICANT ATYPIA. 2.MESENTERIC MASS BIOPSY: AMORPHOUS MATERIAL WITH SCATTERED FRAGMENTS OF FIBROUS TISSUE WITH CHRONIC INFLAMMATION AND RARE AREAS OF GRANULOMATOUS INFLAMMATION. STAINS FOR ACID FAST ORGANISMS AND FUNGI ARE NEGATIVE. NEGATIVE FOR MALIGNANCY AND SIGNIFICANT ATYPIA. ICD10 CODE Z86.11 NOTE: The preliminary results of this evaluation are telephoned to Dr. Jl Taylor at 12:30 on 01/16/17. GROSS DESCRIPTION: The specimens are received in formalin, labeled with the patient's name, and sublabeled as the following: (1) abdominal wall nodule; (2) mesenteric mass. (1) The specimen consists of a piece of red-brown glistening solid rubbery tissue (0.6 x 0.5 x 0.4 cm). The cut surface is red-brown and semitranslucent. Ink code: black-resection margin. Section code: (1A) tissue, bisected. Specimen entirely submitted. (2) The specimen consists of multiple fragments of guerrero-white solid partially friable tissue (1.5 x 0.6 x 0.2 cm in aggregate). Specimen entirely submitted. 01/12/17 JM MICRO DESCRIPTION: See diagnosis. ICD-9 CODES: CPT CODES: 1: 64107, 73894, 71211 2: 26469, 10183, 20422 Electronically Signed Out Cali Villanueva MD [facility] Pathology [facility] [address], [place] [address] Technical component performed at [facility], [address], [place], [address]
== END 2017-01-10 23:59 | disposition home or self-care (01) ==
LOC: SAS 09:07
PROVIDERS: ATTEND Surgery
DX: K63.9 Disease of intestine, unspecified (principal); K66.0 Peritoneal adhesions (postprocedural) (postinfection); I50.9 Heart failure, unspecified; I15.1 Hypertension secondary to other renal disorders; D64.9 Anemia, unspecified; M32.9 Systemic lupus erythematosus, unspecified; F41.9 Anxiety disorder, unspecified; M32.14 Glomerular disease in systemic lupus erythematosus; F32.9 Major depressive disorder, single episode, unspecified; N18.6 End stage renal disease; R07.89 Other chest pain; Z99.2 Dependence on renal dialysis; Z86.11 Personal history of tuberculosis
CPT/HCPCS: 36415; 49321; 84132; 84703; 87070; 87075; 87077; 87101; 87205; 87206; 87556; J0690; J1100; J1170; J1644; J2250; J2370; J2405; J2710; J2765; J3010; J7030